=== PATIENT | female | born 1985 | race Caucasian/White ===

== ENCOUNTER 2017-08-27 19:32 | Emergency (ER) | payer OTHER ==
[~2017-08-27] VITALS: Ht 378.5 cm; Wt 88.7 kg
[~2017-08-27 19:32] MED LIST: CLON2TAB3 PO; IBUP-1450 PO; SERT1TAB68 PO
[2017-08-27 19:42] VITALS: TEMP 37; Ht 378.5 cm; Wt 88.7 kg
--- NOTE | 2017-08-27 20:40 | EMERGENCY ROOM VISIT NOTE ---
History Report prepared by Raul: Kim Mayes Under the Supervision of: Dr. Zaynab Fajarod M.D. First contact with patient: 20:29 Chief Complaint: ILLNESS Stated Complaint: NAUSEOUS AT TIMES, HEADACHES, FATIGUE AND DIZZY History of Present Illness The patient is a 31 year old female who presents to the Emergency Room with complaints of a constant illness beginning a few days ago. The patient states that she has been feeling tired, dizzy, and nauseous over the last few days. She reports that her last menstrual period was 1 month ago and she took plan B but 2 days after intercourse and only bled a small amount. She notes that she has had chills and cramping. She denies any bleeding. The patient states that she took a positive test yesterday and today that were light. She notes that she did have bad morning sickness with her first . She did have a for that delivery. Source of History: patient Onset: 2 days ago Position: other (global) Quality: other (illness) Timing: constant Associated Symptoms: + chills, + nausea, + fatigue Note: The patient complains of cramping. She denies bleeding. Review of Systems See HPI for pertinent positives & negatives. A total of 10 systems reviewed and were otherwise negative. Past Medical & Surgical Medical Problems: (1) section Family History FH: cancer FHx: gallbladder disease Hypertension Social History Smoking Status: Never Smoker Alcohol Use: none Marital Status: single Occupation Status: unemployed Current/Historical Medications Scheduled Etonogestrel/Ethinyl Estradiol (Nuvaring), 1 EA VAGRING MONTHLY Metformin Hcl (Glucophage), 500 MG PO TIDM Sertraline Hcl (Zoloft), 100 MG PO DAILY Scheduled PRN Clonazepam (Klonopin), 2 MG PO TID PRN for Anxiety Ibuprofen (Motrin), 600 MG PO Q6H PRN for Pain Allergies Coded Allergies: Sulfa Drugs (Unverified Allergy, Severe, VOMITING, 07/11/16) Physical Exam Vital Signs Date Time Temp Pulse Resp B/P (MAP) Pulse Ox O2 Delivery O2 Flow Rate FiO2 08/27/17 22:33 77 16 120/74 99 08/27/17 21:49 91 16 114/74 99 08/27/17 19:42 37.0 95 18 151/104 97 Room Air Physical Exam Vital signs reviewed. General: Well-appearing 31-year-old female, in no significant distress. HEENT: No scleral icterus, PERRLA, neck supple. Atraumatic. Cardiovascular: Regular rate and rhythm, no extra sounds. Pulmonary: Clear to auscultation bilaterally, normal work of breathing. Abdomen: Soft, nontender, nondistended, positive bowel sounds. Musculoskeletal: Atraumatic, no peripheral edema. Neurologic: Patient awake alert and oriented x 3, full strength in all 4 extremities. Cranial nerves 2 through 12 grossly intact. Skin: Warm, dry, no rash Medical Decision & Procedures Laboratory Results 08/27/17 21:07 Red Blood Count 4.38, Mean Corpuscular Volume 88.4, Mean Corpuscular Hemoglobin 30.4, Mean Corpuscular Hemoglobin Concent 34.4, Mean Platelet Volume 11.5, Neutrophils (%) (Auto) 58.9, Lymphocytes (%) (Auto) 34.1, Monocytes (%) (Auto) 4.5, Eosinophils (%) (Auto) 1.9, Basophils (%) (Auto) 0.2, Neutrophils # (Auto) 9.95, Lymphocytes # (Auto) 5.78, Monocytes # (Auto) 0.77, Eosinophils # (Auto) 0.33, Basophils # (Auto) 0.03 08/27/17 21:07 Test 08/27/17 20:40 08/27/17 21:07 Urine Color YELLOW Urine Appearance CLEAR (CLEAR) Urine pH 7.0 (4.5-7.5) Urine Specific [place] 1.007 (1.000-1.030) Urine Protein NEG (NEG) Urine Glucose (UA) NEG (NEG) Urine Ketones NEG (NEG) Urine Occult Blood NEG (NEG) Urine Nitrite NEG (NEG) Urine Bilirubin NEG (NEG) Urine Urobilinogen NEG (NEG) Urine Leukocyte Esterase NEG (NEG) Urine Test NEG (NEG) White Blood Count 16.93 K/uL (4.8-10.8) Red Blood Count 4.38 M/uL (4.2-5.4) Hemoglobin 13.3 g/dL (12.0-16.0) Hematocrit 38.7 % (37-47) Mean Corpuscular Volume 88.4 fL (80-100) Mean Corpuscular Hemoglobin 30.4 pg (25-34) Mean Corpuscular Hemoglobin Concent 34.4 g/dl (32-36) Platelet Count 263 K/uL (130-400) Mean Platelet Volume 11.5 fL (7.4-10.4) Neutrophils (%) (Auto) 58.9 % Lymphocytes (%) (Auto) 34.1 % Monocytes (%) (Auto) 4.5 % Eosinophils (%) (Auto) 1.9 % Basophils (%) (Auto) 0.2 % Neutrophils # (Auto) 9.95 K/uL (1.4-6.5) Lymphocytes # (Auto) 5.78 K/uL (1.2-3.4) Monocytes # (Auto) 0.77 K/uL (0.11-0.59) Eosinophils # (Auto) 0.33 K/uL (0-0.5) Basophils # (Auto) 0.03 K/uL (0-0.2) RDW Standard Deviation 42.6 fL (36.4-46.3) RDW Coefficient of Variation 13.2 % (11.5-14.5) Immature Granulocyte % (Auto) 0.4 % Immature Granulocyte # (Auto) 0.07 K/uL (0.00-0.02) Red Blood Cell Morphology Unremarkable Anion Gap 8.0 mmol/L (3-11) Est Creatinine Clear Calc Drug Dose 166.0 ml/min Estimated GFR () 135.7 Estimated GFR (Non- 117.1 BUN/Creatinine Ratio 5.7 (10-20) Calcium Level 9.1 mg/dl (8.5-10.1) Total Bilirubin 0.2 mg/dl (0.2-1) Direct Bilirubin < 0.1 mg/dl (0-0.2) Aspartate Amino Transf (AST/SGOT) 9 U/L (15-37) Alanine Aminotransferase (ALT/SGPT) 18 U/L (12-78) Alkaline Phosphatase 73 U/L (45-117) Total Protein 7.2 gm/dl (6.4-8.2) Albumin 3.5 gm/dl (3.4-5.0) Thyroid Stimulating Hormone (TSH) 1.230 uIu/ml (0.300-4.500) Human Chorionic Gonadotropin, Qual NEG (NEG) Laboratory results per my review. ED Course 2028: Past medical records reviewed. The patient was evaluated in room B3. A complete history and physical examination was performed. 2051: I reevaluated the patient and updated her on her results. 2221: Upon reevaluation, the patient appeared to have improvement of her symptoms. I discussed findings with the patient. She verbalized agreement of the treatment plan. The patient was discharged home. Medical Decision Differential diagnosis includes , viral illness, metabolic abnormality , UTI, and anxiety. This patient was evaluated and appeared to be in no significant distress. Physical examination is fairly unrevealing. Urine test is negative. Laboratory work was drawn due to the patient's symptoms. Serum test is also negative. Patient has a mild leukocytosis, which is consistent with previous numbers. I do not believe this represents an acute infection. Patient is likely suffering from gastritis or a viral illness. She has some anxiety about taking Plan B earlier in the month. She was reassured and asked to use Pepcid as needed. She will follow-up with her physician for reevaluation and return to the ER for worsening of symptoms or any medical concerns. Medication Reconcilliation Current Medication List: was personally reviewed by me Blood Pressure Screening Patient's blood pressure: Elevated blood pressure Blood pressure disposition: Elevated BP felt to be situational Impression Primary Impression: Nausea Additional Impression: test negative Scribe Attestation The scribe's documentation has been prepared under my direction and personally reviewed by me in its entirety. I confirm that the note above accurately reflects all work, treatment, procedures, and medical decision making performed by me. Departure Information Dispostion Home / Self-Care Referrals Charanjit Ortiz M.D. (PCP) Forms HOME CARE DOCUMENTATION FORM, IMPORTANT VISIT INFORMATION, WORK / SCHOOL INSTRUCTIONS Patient Instructions My [facility] Additional Instructions Diagnosis: Nausea, test request Pepcid 20 mg twice daily as needed for gastritis. Please stop smoking. Avoid soda, coffee, alcohol, greasy or's seafoods. Avoid ibuprofen, aspirin and Aleve. Follow-up with your physician this week for continued symptoms. Return to the ER for worsening of symptoms or any medical concerns. Problem Qualifiers
[2017-08-27] MEDS ORDERED: GLC/500 PO (21:00)
[2017-08-27] MEDS ORDERED: ETONMIS VAGRING (21:01)
[2017-08-27 21:27] LABS: HEMATOCRIT 38.7 % (37-47); MEAN CELL VOLUME 88.4 fL (80-100); MEAN CORPUSCULAR HEMOGLOBIN 30.4 pg (25-34); MEAN CORPUSCULAR HGB CONC 34.4 g/dl (32-36); MEAN PLATELET VOLUME 11.5 fL (7.4-10.4); PLATELET COUNT 263 K/uL (130-400); RED BLOOD COUNT 4.38 M/uL (4.2-5.4); WHITE BLOOD COUNT 16.93 K/uL (4.8-10.8)
[2017-08-27 21:42] LABS: URINE APPEARANCE CLEAR (CLEAR); URINE BILIRUBIN NEG (NEG); URINE COLOR YELLOW; URINE NITRITE NEG (NEG); URINE SPECIFIC GRAVITY 1.007 (1.000-1.030); UROBILINOGEN NEG (NEG); ZZUR CULT IF INDIC CLEAN CATCH NO
[2017-08-27 21:43] LABS: MANUAL MICROSCOPIC REQUIRED? NO; REVIEW REQ? NO
[2017-08-27 21:44] LABS: ALT/SGPT 18 U/L (12-78); BLOOD UREA NITROGEN 4 mg/dl (7-18); BUN/CREATININE RATIO 5.7 (10-20); CALCIUM 9.1 mg/dl (8.5-10.1); CARBON DIOXIDE 25 mmol/L (21-32); CHLORIDE 109 mmol/L (98-107); GLUCOSE 101 mg/dl (70-99); POTASSIUM 3.6 mmol/L (3.5-5.1); SODIUM 142 mmol/L (136-145)
[2017-08-27 21:45] LABS: PREG INTERNAL NEGATIVE QC NEG CLEAR BACKGROUND; PREG INTERNAL POSITIVE QC POS CONTROL LINE
[2017-08-27 21:55] LABS: ALKALINE PHOSPHATASE 73 U/L (45-117); AST/SGOT 9 U/L (15-37)
[2017-08-27 22:25] LABS: BASO % 0.2 %; BASO ABS # 0.03 K/uL (0-0.2); COMPLETE YES; EOS % 1.9 %; IG% 0.4 %; LYMPH % 34.1 %; LYMPH ABS # 5.78 K/uL (1.2-3.4); MONO % 4.5 %; NEUT % 58.9 %
[2017-08-27 22:33] VITALS: BP 120/74; PULSE 77; O2SAT 99
== END 2017-08-27 22:34 | disposition home or self-care (01) ==
LOC: C.EDB 19:33
DX: R11.0 Nausea (principal); Z80.9 Family history of malignant neoplasm, unspecified; Z83.79 Family history of other diseases of the digestive system; Z82.49 Family history of ischemic heart disease and other diseases of the circulatory system; Z79.899 Other long term (current) drug therapy

== ENCOUNTER 2017-11-21 05:56 | Emergency (ER) | payer OTHER ==
[~2017-11-21] VITALS: Ht 175.3 cm; Wt 85.2 kg
[~2017-11-21 05:56] MED LIST changes: +ETONMIS VAGRING; +GLC/500 PO
[2017-11-21 06:02] VITALS: Ht 175.3 cm; Wt 85.2 kg
[2017-11-21] MEDS ORDERED: CALC600T PO (06:29)
[2017-11-21] MEDS ORDERED: MULT-506 PO (06:29)
[2017-11-21] MEDS ORDERED: SODIUM CHLORIDE 0.9% 1000ML 1,000 ML IV ONE (06:30)
[2017-11-21 06:35] LABS: HEMATOCRIT 43.1 % (37-47); HEMOGLOBIN 14.4 g/dL (12.0-16.0); MEAN CELL VOLUME 90.4 fL (80-100); MEAN CORPUSCULAR HEMOGLOBIN 30.2 pg (25-34); MEAN CORPUSCULAR HGB CONC 33.4 g/dl (32-36); MEAN PLATELET VOLUME 11.6 fL (7.4-10.4); PLATELET COUNT 289 K/uL (130-400); RED CELL DISTRIBUTION WIDTH CV 12.8 % (11.5-14.5); RED CELL DISTRIBUTION WIDTH SD 42.2 fL (36.4-46.3); WHITE BLOOD COUNT 17.53 K/uL (4.8-10.8)
[2017-11-21 06:53] LABS: ALBUMIN 3.8 gm/dl (3.4-5.0); CALCIUM 9.3 mg/dl (8.5-10.1); CREATININE 0.55 mg/dl (0.60-1.20); POTASSIUM 3.9 mmol/L (3.5-5.1)
[2017-11-21 06:56] LABS: TOTAL PROTEIN 6.9 gm/dl (6.4-8.2)
[2017-11-21 07:27] LABS: BASO % 0.3 %; BASO ABS # 0.05 K/uL (0-0.2); EOS % 2.9 %; IG# 0.08 K/uL (0.00-0.02); LYMPH % 41.4 %; LYMPH ABS # 7.26 K/uL (1.2-3.4); MONO % 6.4 %; MONO ABS # 1.13 K/uL (0.11-0.59); NEUT % 48.5 %; NEUT ABS # 8.51 K/uL (1.4-6.5)
[2017-11-21 08:35] VITALS: BP 106/62; PULSE 62; TEMP 36.4; O2SAT 98
--- NOTE | 2017-11-21 09:51 | DIAGNOSTIC IMAGING REPORT ---
TRANSVAGINAL HISTORY: 32 years-old Female vag bleed. likely miscairrage. Acute vaginal bleeding with COMPARISON: Pelvic ultrasound 06/20/2013 TECHNIQUE: Multiple real-time sonographic images of the deep pelvic structures were obtained transabdominally and transvaginally assessing grayscale appearance, color and spectral flow FINDINGS: TRANSABDOMINAL: Retroflexed uterus measures 9.9 x 4.4 x 5.2 cm. Intrauterine gestational sac measures 1.3 cm correlating with estimated gestational age of 5 weeks and 3 days. The ovaries measure within normal limits and appear unremarkable. TRANSVAGINAL: Retroflexed uterus contains an intrauterine gestational sac measuring 1.4 cm correlating with estimated gestational age of 5 weeks and 4 days. Yolk sac is also present, 0.3 cm. No pole identified. There is a curvilinear 1.3 x 0.3 cm collection noted along the anterior aspect of the gestational sac. Left ovary measures 2.3 x 1.5 x 2.8 cm and is unremarkable with arterial inflow documented. Complex centrally cystic lesion within the right ovary measures 1.2 x 1.1 x 0.9 cm. Right ovary overall measures 4.0 x 3.4 x 2.1 cm. Arterial inflow to the right ovary is documented. IMPRESSION: 1. Intrauterine gestational sac and yolk sac are seen without pole identified at this time. Size of the gestational sac correlates with estimated gestational age of 5 weeks and 4 days. Follow-up with serial quantitative beta hCG analysis and ultrasound imaging is needed to confirm a viable gestation. 2. 1.3 cm subchorionic hematoma anterior to the gestational sac. Attention at follow-up recommended. 3. Left corpus luteum, 1.2 cm. No evidence of ovarian torsion. The above report was generated using voice recognition software. It may contain grammatical, syntax or spelling errors. Electronically signed by: José Antonio Anthony M.D. 11/21/2017 9:50 AM Dictated Date/Time: 11/21/2017 9:44 AM
[2017-11-21 10:18] VITALS: BP 122/86; PULSE 95; O2SAT 99
--- NOTE | 2017-11-21 17:11 | EMERGENCY ROOM VISIT NOTE ---
ED Visit Note First contact with patient: 08:44 Emergency Department Note: Ms. Vanessa's care was transferred to [place] by Catarino Reyez PA-C at the end of his shift pending quantitative beta hCG, ultrasound and possible role gram administration. In summary patient is 6, para 2. She has been diagnosed as and is currently one month and 6 days. On her last [employer] follow-up her quantitative beta hCG was not matching to her possible and her [employer] indicated that she might be having a miscarriage. She was scheduled for follow- up in 2 days. Patient started having cramping and bleeding early this morning at approximately 3:30 AM. She came to the ER and initial evaluation was done by Mr. Reyez; please see his notes for full information about his contact with the patient. On my initial evaluation patient was complaining of suprapubic abdominal pain. She rated her discomfort 7/10. She reports her pain is been constant. Her pain is nonradiating. She has not identified any aggravating or alleviating factors related to the pain. She was offered pain medication and refused. Patient's quantitative beta hCG came back at 4796. Her blood type was O-. Radiological impression of her ultrasound shows a intrauterine gestational sac and yolk sac are seen without pole. Size of the gestational sac correlates with estimated gestational age of 5 weeks and 4 days. Radiologist felt that serial quantitative beta hCGs and ultrasounds were needed to confirm the viability of the gestation. Radiologist also noted 1.3 cm subchorionic hematoma anterior to the gestational sac and left corpus luteum measuring 1.2 cm and no evidence of ovarian torsion. Clinical Impression: Probable early spontaneous . Disposition: Patient discharged home in stable condition accompanied by male friend; prior to departure she was reassessed and subjectively reported she was feeling better and rated her discomfort 2/10. Patient had no additional bleeding during her stay in the ED. Plan: Patient was encouraged to alternate ibuprofen and acetaminophen as needed for pain per Patient was encouraged to have vaginal rest. Patient was encouraged to to her [employer] appointment for follow-up care and treatment. Patient is encouraged to return to the ED for worsening/uncontrolled pain, uncontrolled bleeding or any new/concerning symptoms.
--- NOTE | 2017-11-22 02:25 | EMERGENCY ROOM VISIT NOTE ---
History First contact with patient: 06:05 Chief Complaint: ED VAG BLEEDING Stated Complaint: BLEEDING,BLOOD CLOTS,MISCARRIAGE History of Present Illness The patient is a 32 year old female who presents to the Emergency Room with complaints of vaginal bleeding that began about 2 and half hours ago. The patient is with 2 previous spontaneous abortions and 2 elective abortions. [facility]. The patient is reportedly 5-6 weeks , and started with bright red vaginal bleeding tonight. She states that she soaked through a pad in one hour, contacted the on-call nurse, and was referred to the ER for further management. The patient is having abdominal cramping but not distinct pain. She states that she took Advil at home for the discomfort which is not significantly improve her symptoms. The patient has not had fever or chills. No chest pain or shortness of breath. She has an appointment in 2 days with her [employer]. She rates her overall discomfort a 6/10. Review of Systems More than 10 systems were reviewed and otherwise negative with the exception of history of present illness. Past Medical/Surgical History Medical Problems: (1) section Family History FH: cancer FHx: gallbladder disease Hypertension Social History Smoking Status: Current Every Day Smoker Alcohol Use: none Marital Status: single Occupation Status: unemployed Current/Historical Medications Scheduled Calcium Carbonate (Calcium 600), 600 MG PO DAILY Metformin Hcl (Glucophage), 500 MG PO TIDM Multivitamin (Multivitamin), 1 TAB PO DAILY Sertraline Hcl (Zoloft), 200 MG PO DAILY Scheduled PRN Clonazepam (Klonopin), 2 MG PO TID PRN for Anxiety Physical Exam Vital Signs Date Time Temp Pulse Resp B/P (MAP) Pulse Ox O2 Delivery O2 Flow Rate FiO2 11/21/17 10:18 95 16 122/86 99 11/21/17 08:45 62 16 106/62 98 Room Air 11/21/17 08:35 36.4 62 18 106/62 98 11/21/17 07:54 71 16 91/42 100 Room Air 11/21/17 06:02 36.8 93 18 120/79 95 Room Air Physical Exam VITALS: Vitals are noted on the nurse's note and reviewed by myself. Vital signs stable. GENERAL: Well-developed, well-nourished, white female, who is in no acute distress and resting comfortably. Patient is cooperative with the examination. NECK: Supple without nuchal rigidity. No lymphadenopathy. No thyromegaly. Cervical spine is nontender. HEART: Regular rate and rhythm without murmurs gallops or rubs. LUNGS: Clear to auscultation bilaterally without wheezes, rales or rhonchi. No retractions or accessory muscle use. ABDOMEN: Positive normal bowel sounds x 4. Soft with mild tenderness throughout. No focal tenderness. No CVA tenderness. MUSCULOSKELETAL: No muscle atrophy, erythema, or edema noted. Full range of motion without joint tenderness in all extremities. Medical Decision & Procedures Laboratory Results 11/21/17 06:17 Red Blood Count 4.77, Mean Corpuscular Volume 90.4, Mean Corpuscular Hemoglobin 30.2, Mean Corpuscular Hemoglobin Concent 33.4, Mean Platelet Volume 11.6, Neutrophils (%) (Auto) 48.5, Lymphocytes (%) (Auto) 41.4, Monocytes (%) (Auto) 6.4, Eosinophils (%) (Auto) 2.9, Basophils (%) (Auto) 0.3, Neutrophils # (Auto) 8.51, Lymphocytes # (Auto) 7.26, Monocytes # (Auto) 1.13, Eosinophils # (Auto) 0.50, Basophils # (Auto) 0.05 11/21/17 06:17 Test 11/21/17 06:17 White Blood Count 17.53 K/uL (4.8-10.8) Red Blood Count 4.77 M/uL (4.2-5.4) Hemoglobin 14.4 g/dL (12.0-16.0) Hematocrit 43.1 % (37-47) Mean Corpuscular Volume 90.4 fL (80-100) Mean Corpuscular Hemoglobin 30.2 pg (25-34) Mean Corpuscular Hemoglobin Concent 33.4 g/dl (32-36) Platelet Count 289 K/uL (130-400) Mean Platelet Volume 11.6 fL (7.4-10.4) Neutrophils (%) (Auto) 48.5 % Lymphocytes (%) (Auto) 41.4 % Monocytes (%) (Auto) 6.4 % Eosinophils (%) (Auto) 2.9 % Basophils (%) (Auto) 0.3 % Neutrophils # (Auto) 8.51 K/uL (1.4-6.5) Lymphocytes # (Auto) 7.26 K/uL (1.2-3.4) Monocytes # (Auto) 1.13 K/uL (0.11-0.59) Eosinophils # (Auto) 0.50 K/uL (0-0.5) Basophils # (Auto) 0.05 K/uL (0-0.2) RDW Standard Deviation 42.2 fL (36.4-46.3) RDW Coefficient of Variation 12.8 % (11.5-14.5) Immature Granulocyte % (Auto) 0.5 % Immature Granulocyte # (Auto) 0.08 K/uL (0.00-0.02) Hypersegmented Polys 1+ Anion Gap 9.0 mmol/L (3-11) Est Creatinine Clear Calc Drug Dose 174.3 ml/min Estimated GFR () 145.9 Estimated GFR (Non- 125.9 BUN/Creatinine Ratio 9.4 (10-20) Calcium Level 9.3 mg/dl (8.5-10.1) Total Bilirubin 0.2 mg/dl (0.2-1) Aspartate Amino Transf (AST/SGOT) 14 U/L (15-37) Alanine Aminotransferase (ALT/SGPT) 19 U/L (12-78) Alkaline Phosphatase 76 U/L (45-117) Total Protein 6.9 gm/dl (6.4-8.2) Albumin 3.8 gm/dl (3.4-5.0) Globulin 3.1 gm/dl (2.5-4.0) Albumin/Globulin Ratio 1.2 (0.9-2) Human Chorionic Gonadotropin, Quant 4796 mIU/mL Chemistry Specimen Hemolysis Medications Administered Medications (Trade) Dose Ordered Sig/Norberto Route Start Time Stop Time Status Last Admin Dose Admin Sodium Chloride 1,000 ml @ 999 mls/hr Q1H1M ONCE IV 11/21/17 06:30 11/21/17 07:30 DC 11/21/17 06:28 999 MLS/HR ED Course Physical exam and history were performed. Nursing notes, EMR, and Medication List were personally reviewed. Patient appears to have bright red vaginal bleeding that began a few hours ago. The patient admits the bleeding has slowed, but she did pass several large clots and is concerned that she may be having a spontaneous . IV access was established and labs were obtained. Blood bank was ordered. The patient was hydrated with normal saline. Ultrasound was ordered. Pelvic exam was discussed but deferred per the patient. The patient remained in stable condition until the time of shift change. The case was discussed with my colleague, Fausto Valdovinos PA-C, who will assume care at this time. At this time the remainder of the patient's blood work as well as her ultrasound is pending. The patient may need Rhogam. Please see Mr. Valdovinos's dictation for further Emergency Department course, plan, and disposition. The chart was completed utilizing [employer] Speech Voice Recognition Software. Grammatical errors, random word insertions, pronoun errors, and incomplete sentences are an occasional consequence of this system due to software limitations, ambient noise, and hardware issues. Any formal questions or concerns about the content, text, or information contained within the body of this dictation should be directly addressed to the provider for clarification. . Medical Decision Differential diagnosis: Etiologies such as ectopic , dysfunction uterine bleeding, bleeding dyscrasia, trauma, infection, as well as others were entertained. Impression Primary Impression: Spontaneous Departure Information Dispostion Home / Self-Care Condition GOOD Forms WORK / SCHOOL INSTRUCTIONS, HOME CARE DOCUMENTATION FORM, IMPORTANT VISIT INFORMATION Patient Instructions My [facility] Additional Instructions You may alternate 600 mg of ibuprofen and 650 mg of acetaminophen every 3 hours as needed for persistent pain. Keep your upcoming appointment with oncology for recheck in 2 days. Return to the ED for worsening/uncontrolled pain, worsening vaginal bleeding or any new/concerning symptoms.
== END 2017-11-21 10:19 | disposition home or self-care (01) ==
LOC: C.EDB 05:57
DX: O03.9 Complete or unspecified spontaneous abortion without complication (principal); F17.200 Nicotine dependence, unspecified, uncomplicated; Z87.59 Personal history of other complications of pregnancy, childbirth and the puerperium; Z98.891 History of uterine scar from previous surgery; Z82.49 Family history of ischemic heart disease and other diseases of the circulatory system

== ENCOUNTER 2018-11-12 05:47 | Inpatient (IN) ==
--- NOTE | 2018-10-14 12:15 | PAT Medication Instructions ---
Medication Instructions Date of Service October 14, 2018 Home Medications PNV cmb#95-ferrous fumarate-FA [] 1 tab PO DAILY clonazepam [Klonopin] 1 mg PO TID NEEDED sertraline [Zoloft] 200 mg PO HS DO NOT take the morning of surgery PNV cmb#95-ferrous fumarate-FA [] 1 tab PO DAILY Take morning of surgery With a small sip of water, OTHERWISE NOTHING TO EAT OR DRINK AFTER MIDNIGHT: clonazepam [Klonopin] 1 mg PO TID NEEDED (stop 4 hours before surgery) Take evening before surgery clonazepam [Klonopin] 1 mg PO TID NEEDED sertraline [Zoloft] 200 mg PO HS Other Notes If you have any questions please call us at [phone] or [phone] or [phone] or [phone]
--- NOTE | 2018-10-14 13:26 | Anesthesiology Consultation ---
Date of Service October 14, 2018 Assessment & Plan (1) Encounter for pre-operative examination: Chart Review Chart Review: Acceptable Risk for Surgery and Patient seen in Pre Admission Testing Consults Requested none Teaching & Discussion Pre-Anesthesia Teaching/Discussion Notes: Instructed NPO after midnight before surgery, except medications with 15 cc of water. Medication instructions provided according to the PAT guidelines. History Surgery Operation Date: 11/12/18 07:30 Proposed Procedures p Section in LD - Chelsea Velazco MD Height/Weight Height: 5 ft 9 in Weight: 93.8 kg Allergies Allergy/AdvReac Type Severity Reaction Status Date / Time Sulfa (Sulfonamide Allergy Severe VOMITING Verified 10/09/18 15:30 Antibiotics) Medications Home Medications Medication Instructions Recorded Confirmed Last Taken PNV cmb#95-ferrous fumarate-FA 1 tab PO DAILY 10/09/18 10/09/18 Unknown [] clonazepam [Klonopin] 1 mg PO TID PRN 10/09/18 10/09/18 Unknown sertraline [Zoloft] 200 mg PO HS 10/09/18 10/09/18 Unknown Past Medical History Medical History Anemia Anxiety Depression GERD (gastroesophageal reflux disease) Hypothyroidism IN PAST Migraine Post traumatic stress disorder Prediabetes Temporomandibular joint disorder Past Family History Family History Mother Hypertension Grandfather Stroke Father Heart attack Past Surgical History Surgical History History of anesthesia reaction INCREASED ANXIETY History of section (~12/12/12) History of dilatation and curettage (~12/06/11) History of nasal septoplasty (~03/23/10) History of tooth extraction Past Anesthesia History No Hx of Anesthesia Complications and No Family Hx of Anesthesia Complications History of PONV Yes Motion Sickness Screening History of Motion Sickness: Yes Social History Smoking Status: Current every day smoker tobacco type: cigarettes Smoking cigarettes per day: 2 packs Do You Dip or Chew Tobacco: No Hx Alcohol Use: No Hx Substance Use: No substance use type: does not use Exercise / Class Metabolic Activity II 4-5 Yardwork/Stairs/Walk up hill (Able to climb FOS. Denies CP. Does have SOB with . ) Review of Systems Patient denies chest pain, joint pain, cough, wheezing, palpitations. +joint pain (hips, back, feet, pelvis) +SOB/PAKRER (with only) +acid reflux + palpitations (with anxiety) Physical Exam Vital Signs BP: 106/72 P: 89 R: 20 T: 97.7 SPO2: 98% on RA ENMT Thyromental Distance: < 3.5 Finger Breadths Mallampati Class: II Neck normal visual inspection, trachea midline and + shortened thyromental distance; neck extension not limited Respiratory normal respiratory effort Auscultation: lungs clear to auscultation bilaterally Cardiovascular Rate/Rhythm: regular rate and regular rhythm Heart Sounds: no murmur Vessels: no carotid bruit Neurologic moves all extremities Psychiatric Orientation: alert and oriented x 3 Testing Laboratory Results 10/14/18 13:45 Blood Type O Negative 10/14/18 13:45 Antibody Screen POSITIVE A 10/14/18 13:45 Dr. Jorgensen's office was notified of leukocytosis, as well as the presence of antibodies in the type & screen.
[2018-10-14 15:46] LABS: Basophils # (auto) 0.03 K/uL (0-0.2); Basophils % (auto) 0.2 %; Eosinophils # (auto) 0.19 K/uL (0-0.5); Eosinophils % (auto) 1.2 %; Hematocrit (blood only) 36.6 % (37-47); Hemoglobin 12.1 g/dL (12.0-16.0); Immature Granulocytes # (auto) 0.12 K/uL (0.00-0.02); Immature Granulocytes % (auto) 0.8 %; Lymphocytes # (auto) 4.38 K/uL (1.2-3.4); Lymphocytes % (auto) 28.4 %; Mean Corpuscular Hgb Conc 33.1 g/dL (32-36); Mean Corpuscular Volume 88.8 fL (80-100); Monocytes # (auto) 1.04 K/uL (0.11-0.59); Monocytes % (auto) 6.7 %; Neutrophils # (auto) 9.68 K/uL (1.4-6.5); Neutrophils % (auto) 62.7 %; Platelet Count 227 K/uL (130-400); RDW Coefficient of Variation 13.4 % (11.5-14.5); RDW Standard Deviation 43.6 fL (36.4-46.3); Red Blood Count 4.12 M/uL (4.2-5.4); White Blood Count 15.44 K/uL (4.8-10.8)
[2018-11-12] MEDS ORDERED: LACTATED RINGER'S 1,000 ML IV SCH ×3 (06:00→09:15)
[2018-11-12] MEDS ORDERED: CITRIC ACID/SODIUM CITRATE 15 ML UDC PO SCH (06:00)
[2018-11-12] MEDS ORDERED: CEFAZOLIN 2,000 MG in SYRINGE 0 ML IV SCH (06:00)
[2018-11-12 06:36] LABS: Hematocrit (blood only) 35.4 % (37-47); Hemoglobin 11.9 g/dL (12.0-16.0); Mean Corpuscular Hgb Conc 33.6 g/dL (32-36); Mean Platelet Volume 12.3 fL (7.4-10.4); Platelet Count 180 K/uL (130-400); RDW Coefficient of Variation 13.4 % (11.5-14.5); RDW Standard Deviation 42.8 fL (36.4-46.3); Red Blood Count 4.07 M/uL (4.2-5.4); White Blood Count 15.99 K/uL (4.8-10.8)
[2018-11-12 07:10] LABS: Basophils # (auto) 0.02 K/uL (0-0.2); Basophils % (auto) 0.1 %; Eosinophils # (auto) 0.01 K/uL (0-0.5); Eosinophils % (auto) 0.1 %; Immature Granulocytes # (auto) 0.26 K/uL (0.00-0.02); Immature Granulocytes % (auto) 1.6 %; Lymphocytes # (auto) 3.25 K/uL (1.2-3.4); Lymphocytes % (auto) 20.3 %; Monocytes # (auto) 0.93 K/uL (0.11-0.59); Monocytes % (auto) 5.8 %; Neutrophils # (auto) 11.52 K/uL (1.4-6.5); Neutrophils % (auto) 72.1 %
--- NOTE | 2018-11-12 07:41 | History & Physical Bridge Note ---
Date of Service November 12, 2018 History & Physical Bridge Note I have examined the patient, reviewed the History & Physical and in the interval since the performance of the History & Physical I have noted the following changes of clinical significance She had URI and has been on Keflex and Prednisone taper since 11/08/18 Pulse Ox: 98% in RA FHR 150's, with minimal to moderate variability, no decels She smoked 6 cigarettes this morning before she came She has been anxious, on Zoloft, Clonipin. All questions were answered.
[2018-11-12] MEDS ORDERED: fentaNYL citrate 100 MCG/2 ML VIAL ONE (07:42)
[2018-11-12] MEDS ORDERED: MoRPHine SULFATE PF 1 MG/ML 10 ML AMP/VIAL ONE (07:42)
[2018-11-12] MEDS ORDERED: ONDANSETRON INJ 2 MG/ML 2 ML VIAL ONE ×2 (07:43→08:44)
[2018-11-12] MEDS ORDERED: OXYTOCIN 10 UNITS/ML VIAL ONE (07:43)
[2018-11-12] MEDS ORDERED: MIDAZOLAM HCL 1 MG/ML 2ML VIAL ONE ×2 (08:25→08:42)
[2018-11-12] MEDS ORDERED: KETOROLAC 30 MG/ML VIAL ONE (08:33)
[2018-11-12] MEDS ORDERED: PROMETHAZINE HCL INJ 25 MG/ML 1 ML VIAL ONE (08:33)
[2018-11-12] MEDS ORDERED: PHENYLEPHRINE 100MCG/ML 5ML SYR ONE (08:38)
--- NOTE | 2018-11-12 09:03 | Post Operative Brief Note ---
Immediate Post Op Note v1 Date of Surgery November 12, 2018 Pre & Post Diagnosis Operation Date: 11/12/18 07:30 Pre-Op Diagnosis: Previous Section; Pt desires Repeat Section. Post-Op Diagnosis: Same as Pre-op Procedure Operation Date: 11/12/18 07:30 Actual Procedures Repeat Section in LD; Live Male Infant at 0822 - Chelsea Velazco MD Surgeon Chelsea Velazco MD Apartment Groundskeeper Dr. Vaughn Estimated Blood Loss 700 Findings Consistent with Post-Op Diagnosis Fluids 1200 ML LR Drains Palacios Catheter Complications none Disposition Accompanied Patient To Recovery: Yes Disposition: L&D Overlapping Procedure I was present for: the critical portions of procedure. (entire case)
[2018-11-12] MEDS ORDERED: PROMETHAZINE HCL 25 MG in SODIUM CHLORIDE 0.9% 50 ML IV PRN ×2 (09:14→09:20)
[2018-11-12] MEDS ORDERED: KETOROLAC 30 MG/ML VIAL IV PRN (09:14)
[2018-11-12] MEDS ORDERED: DIPHTHERIA/TETANUS/PERTUSSIS 0.5 ML SYR/VIAL IM ONE (09:14)
[2018-11-12] MEDS ORDERED: BENZOCAINE 20% AER SPR 82.5 GM CAN EXT PRN (09:14)
[2018-11-12] MEDS ORDERED: ONDANSETRON INJ 2 MG/ML 2 ML VIAL IV PRN ×3 (09:14→09:59)
[2018-11-12] MEDS ORDERED: OXYCODONE/ACETAMINOPHEN 5mg/325mg TAB PO PRN (09:14)
[2018-11-12] MEDS ORDERED: SUPERCREAM 0.870% 15 GM JAR EXT PRN (09:14)
[2018-11-12] MEDS ORDERED: SENNA 8.6 MG TAB PO PRN (09:14)
[2018-11-12] MEDS ORDERED: DiphenhydrAMINE HCL 50 MG/ML VIAL IV PRN ×2 (09:14→09:20)
[2018-11-12] MEDS ORDERED: MAGNESIUM HYDROXIDE SUSP 30 ML UDC PO PRN (09:14)
[2018-11-12] MEDS ORDERED: HYDROCORTISONE ACETATE 25 MG SUPP PR PRN (09:14)
[2018-11-12] MEDS ORDERED: MEPERIDINE HCL 50 MG/ML CARP IV PRN (09:14)
[2018-11-12] MEDS ORDERED: ALBUTEROL HFA 8 GM INHALER INH PRN (09:18)
[2018-11-12] MEDS ORDERED: NALOXONE HCL 1 MG in SODIUM CHLORIDE 0.9% 1000ML 1,000 ML IV PRN (09:20)
[2018-11-12] MEDS ORDERED: NALOXONE HCL 0.08 MG in SYRINGE 1.8 ML IV PRN (09:20)
[2018-11-12] MEDS ORDERED: ePHEDrine sulfate 50 MG/ML AMP IV PRN (09:20)
[2018-11-12] MEDS ORDERED: HYDROmorphone INJ 0.5 MG/0.5 ML SYR IV PRN (09:20)
[2018-11-12] MEDS ORDERED: NALOXONE HCL 0.4 MG/1 ML VIAL/CARP IV PRN (09:20)
[2018-11-12] MEDS ORDERED: LACTATED RINGER'S 500 ML IV PRN (09:20)
[2018-11-12] MEDS ORDERED: NALBUPHINE HCL INJ 10 MG/ML AMP IV PRN (09:20)
[2018-11-12] MEDS ORDERED: MoRPHine SULFATE PF 1 MG/ML 10 ML AMP/VIAL INT SPINAL ONE (09:20)
[2018-11-12] MEDS ORDERED: ACETAMINOPHEN 1000 MG/100 ML IV IV PRN (09:26)
[2018-11-12] MEDS ORDERED: NO NARCOTICS OR SEDATIVES SCH (09:30)
[2018-11-12] MEDS ORDERED: SODIUM CHLORIDE 0.9% 1000ML 1,000 ML IV SCH (09:30)
[2018-11-12] MEDS ORDERED: DC INTRASPINAL MORPHINE SCH (09:30)
--- NOTE | 2018-11-12 09:33 | Anesthesiology Progress Note ---
Date of Service November 12, 2018 Anesthesia Post Procedure Vital Signs Vital Signs: Temp Pulse Resp BP Pulse Ox 11/12/18 09:32 68 97 11/12/18 09:29 67 131/76 11/12/18 09:27 70 93 11/12/18 09:23 69 93 11/12/18 09:22 67 93 11/12/18 09:17 68 100 11/12/18 09:16 66 93 11/12/18 09:12 36.3 C L 69 18 132/87 100 11/12/18 09:10 36.4 C L 18 11/12/18 07:28 36.8 C 18 11/12/18 07:22 36.8 C 69 18 134/82 11/12/18 06:30 36.4 C L 16 11/12/18 06:12 71 133/77 Notes Mental Status: alert / awake / arousable and participated in evaluation Nausea / Vomiting: adequately controlled Pain: adequately controlled Airway Patency, RR, SpO2: stable & adequate BP & HR: stable & adequate Hydration State: stable & adequate Neuraxial Anesthesia: was administered and sensory block is resolving Anesthetic Complications: no major complications apparent
[2018-11-12] MEDS ORDERED: SCOPOLAMINE 1.5 MG TDSY TD ONE (11:00)
[2018-11-12] MEDS: OXYTOCIN 20 UNITS in LACTATED RINGER'S 1,000 ML IV SCH ×2 (11:34→20:27)
[2018-11-12] MEDS: SIMETHICONE 80 MG CHEW PO SCH ×3 (14:30→21:00)
[2018-11-12] MEDS: cephALEXin 500 MG CAP PO SCH ×2 (14:30→21:00)
[2018-11-12] MEDS: clonazePAM 0.5 MG TAB PO SCH (14:30)
[2018-11-12] MEDS: predniSONE 20 MG TAB PO SCH ×2 (14:42→21:00)
[2018-11-12] MEDS ORDERED: CHECK SCOPOLAMINE PATCH PLACEMENT SCH (16:00)
[2018-11-12] MEDS: DOCUSATE SODIUM 100 MG CAP PO SCH (21:00)
--- NOTE | 2018-11-12 21:20 | Operative Report ---
DATE OF OPERATION: 11/12/2018 PREOPERATIVE DIAGNOSES: The patient is a 33-year-old G2, P1-0-0-1 at 39.4 weeks of gestation who is scheduled for repeat , history of prior section, declines TOLAC/ ( trial of labor after /vaginal after section). POSTOPERATIVE DIAGNOSES: The patient is a 33-year-old G2, P1-0-0-1 at 39.4 weeks of gestation who is scheduled for repeat , history of prior section, declines TOLAC/ ( trial of labor after /vaginal after section). PROCEDURE: Repeat low transverse with Pfannenstiel skin incision. SURGEON: Chelsea Velazco MD. AUDIO VIDEO TECH: Dr. Vaughn. EBL 700 mL. FLUIDS: 1200 mL of lactated Ringer's. DRAINS: Palacios catheter drained 200 mL of clear urine. COMPLICATIONS: None. ANESTHESIA: Spinal, Dr. Donovan. FINDINGS: Baby was in cephalic presentation delivered at 08:22 a.m. Apgars were 2/6/8 at first, fifth and tenth minutes respectively. A viable male infant. MATERNAL FINDINGS: Normal uterus, fallopian tubes and ovaries. PROCEDURE: The patient was taken to the Operating Room where spinal anesthesia was given without difficulty. She was placed in dorsal supine position with a leftward tilt. She was prepared and draped in the usual sterile fashion. A Pfannenstiel skin incision was made from the old incision scar and carried through to the underlying layer of fascia with the Bovie, fascia was incised in the midline and incision was extended laterally with the help of Ferro scissors. The lower aspect of the fascial incision was grasped with 2 Anthony clamps, elevated, underlying rectus muscles were dissected off bluntly and sharply with Ferro scissors, and then upper aspect of the facial incision was grasped with 2 Anthony clamps, elevated, underlying rectus muscles were dissected sharply with Ferro scissors and bluntly. The rectus muscles were in the midline and the peritoneum was entered with fingers. The peritoneal incision was extended superiorly and inferiorly with good visualization of the bladder. Bladder blade was inserted. The vesicouterine peritoneum was identified, grasped with pickups and entered sharply with Metzenbaum scissors. Bladder flap was created digitally. Bladder blade was reinserted. Lower segment of the uterus was visualized to be very thin and it was incised with scalpel and meconium stained fluid was obtained. The incision was extended laterally with the help of fingers. Baby's head was at the incision. It was delivered without difficulty. Mouth and nose were suctioned. Cord was clamped x2 and cut. Baby was handed off to the waiting wound nurse and nursing team. The cord blood was obtained. Placenta was delivered manually intact and complete. Uterus was exteriorized, cleared of all clots and debris. Fundus was firm. The uterine incision was repaired with a 0 Vicryl in a running locked fashion and a second imbricating layer was placed with 0 Vicryl in a running fashion. Excellent hemostasis was achieved. There was a ooze to the left corner which was controlled with a [id number] stitch x2. The posterior cul-de-sac was irrigated warm normal saline, ovaries and fallopian tubes were visualized to be normal, The uterus was returned to the abdomen, the pelvis was irrigated with warm normal saline, suctioned 3 times. Incision was checked to be hemostatic. All the clots and debris were removed from the patient's abdomen and the gutters. Incision was checked and again be hemostatic. The parietal peritoneum was reapproximated with 0 Vicryl in a running fashion and the rectus muscles were reapproximated with the same suture in a running fashion. Rectus fascia was reapproximated with 0 Vicryl in a running fashion starting from both corners meeting in the midline. Subcuticular fat tissue was brought together with 3-0 Vicryl in a running fashion. Skin was closed with 4-0 Monocryl in a subcuticular fashion. The patient tolerated the procedure well. She recived 2 grams of Cefazolin before surgery. Sponge, lap, needle count was correct x3. No complications happened. I and Dr. Vaughn was present during the whole procedure. The patient was taken to recovery in stable condition. I attest to the content of the Intraoperative Record and any orders documented therein. Any exceptions are noted below. LEONA
[2018-11-13] MEDS: KETOROLAC 30 MG/ML VIAL IV PRN ×2 (00:03→05:59)
[2018-11-13] MEDS: clonazePAM 0.5 MG TAB PO SCH ×4 (00:13→17:58)
[2018-11-13 07:20] LABS: Basophils # (auto) 0.01 K/uL (0-0.2); Basophils % (auto) 0.1 %; Eosinophils # (auto) 0.01 K/uL (0-0.5); Eosinophils % (auto) 0.1 %; Hematocrit (blood only) 35.5 % (37-47); Hemoglobin 11.7 g/dL (12.0-16.0); Immature Granulocytes # (auto) 0.19 K/uL (0.00-0.02); Immature Granulocytes % (auto) 1.1 %; Lymphocytes # (auto) 2.69 K/uL (1.2-3.4); Lymphocytes % (auto) 15.2 %; Mean Corpuscular Volume 88.1 fL (80-100); Mean Platelet Volume 12.1 fL (7.4-10.4); Monocytes # (auto) 1.16 K/uL (0.11-0.59); Monocytes % (auto) 6.5 %; Neutrophils # (auto) 13.69 K/uL (1.4-6.5); Platelet Count 199 K/uL (130-400); RDW Coefficient of Variation 13.8 % (11.5-14.5); RDW Standard Deviation 44.1 fL (36.4-46.3); Red Blood Count 4.03 M/uL (4.2-5.4); White Blood Count 17.75 K/uL (4.8-10.8)
[2018-11-13] MEDS ORDERED: KETOROLAC 30 MG/ML VIAL IV PRN (08:01)
[2018-11-13] MEDS ORDERED: DiphenhydrAMINE HCL 50 MG/ML VIAL IV PRN (08:01)
[2018-11-13] MEDS ORDERED: PROMETHAZINE HCL 25 MG in SODIUM CHLORIDE 0.9% 50 ML IV PRN (08:01)
[2018-11-13] MEDS ORDERED: ONDANSETRON INJ 2 MG/ML 2 ML VIAL IV PRN (08:01)
[2018-11-13] MEDS ORDERED: ACETAMINOPHEN 1,000 MG/100 ML VIAL IV PRN (08:01)
[2018-11-13] MEDS: PRENATAL VITAMIN 1 TAB PO SCH (09:00)
[2018-11-13] MEDS: FERROUS SULFATE 325 MG TAB PO SCH (09:00)
[2018-11-13] MEDS: DOCUSATE SODIUM 100 MG CAP PO SCH ×2 (09:00→20:36)
[2018-11-13] MEDS: cephALEXin 500 MG CAP PO SCH ×3 (09:01→20:36)
[2018-11-13] MEDS: predniSONE 20 MG TAB PO SCH ×2 (09:01→20:36)
[2018-11-13] MEDS: SIMETHICONE 80 MG CHEW PO SCH ×4 (09:03→20:36)
[2018-11-13] MEDS: IBUPROFEN 600 MG TAB PO PRN ×3 (11:30→22:01)
[2018-11-13] MEDS: OXYCODONE/ACETAMINOPHEN 5mg/325mg TAB PO PRN ×3 (11:31→22:02)
[2018-11-13] MEDS ORDERED: NICOTINE 21 MG/24 HR TDSY TD SCH (11:45)
--- NOTE | 2018-11-13 12:00 | Surgery Progress Note ---
Date of Service November 13, 2018 Subjective doing well tolerating diet OOB passing gas Physical Exam 2 Vital Signs (Past 24 Hours): Last Vital Signs Temp 36.6 C 11/13/18 11:37 Pulse 69 11/13/18 11:37 Resp 18 11/13/18 11:37 BP 136/87 11/13/18 11:37 Pulse Ox 98 11/13/18 11:37 Gastrointestinal (Abdomen): normal bowel sounds, soft, nontender, no hepatosplenomegaly incision clean/dry/intact abdomen is soft and non-tender no edema neg Abbey's POD#1 will start Nicotine patch 21mg daily
[2018-11-13] MEDS ORDERED: BISACODYL 5 MG TABEC PO SCH (20:00)
[2018-11-14] MEDS: clonazePAM 0.5 MG TAB PO SCH ×2 (00:17→06:15)
[2018-11-14] MEDS: OXYCODONE/ACETAMINOPHEN 5mg/325mg TAB PO PRN ×2 (02:09→07:34)
[2018-11-14] MEDS: IBUPROFEN 600 MG TAB PO PRN ×2 (02:10→07:34)
[2018-11-14 07:52] LABS: Hematocrit (blood only) 34.3 % (37-47); Hemoglobin 11.3 g/dL (12.0-16.0)
[2018-11-14] MEDS: PRENATAL VITAMIN 1 TAB PO SCH (08:40)
[2018-11-14] MEDS: FERROUS SULFATE 325 MG TAB PO SCH (08:41)
[2018-11-14] MEDS: SIMETHICONE 80 MG CHEW PO SCH (08:41)
[2018-11-14] MEDS: cephALEXin 500 MG CAP PO SCH (08:41)
[2018-11-14] MEDS: DOCUSATE SODIUM 100 MG CAP PO SCH (08:41)
[2018-11-14] MEDS ORDERED: predniSONE 20 MG TAB PO SCH (09:00)
[2018-11-14] MEDS ORDERED: BISACODYL 10 MG SUPP PR PRN (09:14)
--- NOTE | 2018-11-14 11:12 | Obstetrical Progress Note ---
Date of Service November 14, 2018 Assessment & Plan (1) delivery delivered: s/p c/sec day #2 Pt doing well wishes to go home today d/c home with instructions Subjective Ambulation: ambulating normally Voiding: no voiding problems Passing Gas:: Yes Diet Tolerance:: clear liquids Lochia:: Small Feeding Type:: breast feeding Review of Systems All systems reviewed & are unremarkable except as noted in HPI & below Physical Exam Vital Signs (Past 24 Hours) Last Vital Signs Temp 36.5 C 11/14/18 00:00 Pulse 73 11/14/18 00:00 Resp 20 11/14/18 00:00 BP 134/78 11/14/18 00:00 Pulse Ox 97 11/14/18 00:00 Constitutional WD/WN, vitals as above well developed and well nourished Eyes PERRL, conjunctivae normal, anicteric sclerae ENMT external ear and nose normal, oropharynx normal Neck trachea midline, no thyromegaly Respiratory normal respiratory effort, lungs clear to auscultation Cardiovascular RRR, no murmur, no edema Chest (Breasts) normal inspection/palpation of breasts Gastrointestinal (Abdomen) normal bowel sounds, soft, nontender, no hepatosplenomegaly Musculoskeletal no cyanosis or clubbing, extremities motor strength 5/5 Skin no rashes, warm and dry + incision (Clean,dry and intact) Neurologic patellar DTR's 2+ bilat, sensation intact Psychiatric A+Ox3, euthymic affect Genitourinary normal external appearance Lymphatic no cervical or axillary lymphadenopathy
--- NOTE | 2018-11-15 23:59 | Discharge Summary ---
DETAILS OF ADMISSION: The patient is a 33-year-old G2, P1-0-0-1 at 39 weeks and 4 days of gestation who was scheduled for repeat on 11/12/18 due to history of prior and declined TOLAC/. She had repeat low transverse with Pfannenstiel skin incision on 11/12/2018. Her surgery was uncomplicated. She delivered a viable male at 0822 a.m. See dictated op note for details. HOSPITAL COURSE: On postop day #1, the patient was doing well. Vital signs stable, afebrile. Urine output was good. She was tolerating a regular diet, passing gas, ambulating without dizziness. Her physical exam was unremarkable. Abdomen is soft, nontender, nondistended. Incision was clean, dry, and intact. Bleeding was minimal. She was started on nicotine patch due to history of smoking. On postop day #2, the patient was doing well, ambulating without dizziness, voiding without problems, passing gas, tolerating a regular diet. Bleeding was minimal. She was her baby. Vital signs stable, afebrile. Physical exam was unremarkable. Incision was clean, dry and intact. She desired to go home on postop day #2 on 11/14/2018. Discharge instructions were given when to call, prescriptions were written for pain. She is to be seen in the office in a week for incision check. LEONA
== END 2018-11-14 13:00 | disposition home or self-care (01) | DRG 788 ==
LOC: 4S1 05:47 → EDSTATUS 07:30 → 4S2 13:08

== ENCOUNTER 2024-08-15 11:02 | Observation (INO) ==
[2024-08-15 11:50] LABS: Basophils # (auto) 0.06 K/uL (0.00-0.20); Basophils % (auto) 0.3 %; Eosinophils % (auto) 0.4 %; Hematocrit (blood only) 35.5 % (37.0-47.0); Hemoglobin 12.7 g/dl (12.0-16.0); Immature Granulocytes # (auto) 0.37 K/uL (0.01-0.20); Immature Granulocytes % (auto) 1.6 %; Mean Corpuscular Hemoglobin 29.5 pg (25.0-34.0); Mean Corpuscular Hgb Conc 35.8 g/dL (32.0-36.0); Mean Corpuscular Volume 82.6 fL (80.0-100.0); Mean Platelet Volume 10.8 fL (9.4-12.4); Monocytes # (auto) 1.68 K/uL (0.11-0.59); Monocytes % (auto) 7.4 %; Neutrophils # (auto) 17.43 K/uL (1.40-6.50); Neutrophils % (auto) 76.3 %; Platelet Count 311 K/uL (130-400); RDW Coefficient of Variation 12.8 % (11.5-14.5); RDW Standard Deviation 38.7 fL (36.4-46.3); White Blood Count 22.84 K/ul (4.8-10.8)
[2024-08-15] MEDS: SODIUM CHLORIDE 0.9% 1,000 ML IV ONE (11:54)
--- NOTE | 2024-08-15 11:54 | XRay Report ---
SINGLE VIEW CHEST CLINICAL HISTORY: Cough FINDINGS: An AP, portable, upright chest radiograph is compared to study dated 06/18/2008. The cardiom ediastinal silhouette is unremarkable. There is mild elevation of the right hemidiaphragm. The lungs and pleural spaces are clear. No pneumothorax is seen. The bony thorax is grossly intact. IMPRESSION: No active disease in the chest. ACT 112: Negative or not required by law. Electronically signed by: Gustavo Taylor M.D. 08/15/2024 11:52 AM
[2024-08-15 12:03] LABS: Partial Thromboplastin Ratio 1.1; Partial Thromboplastin Time 30 Seconds (21-31); Prothrombin Time 10.9 Seconds (9.0-12.0)
[2024-08-15 12:06] LABS: Calcium 9.6 mg/dl (8.6-10.3); Magnesium 1.6 mg/dl (1.7-2.4); Potassium 2.6 mmol/L (3.5-5.1)
--- NOTE | 2024-08-15 12:07 | Emergency Department Note ---
History of Present Illness General Chief complaint: Referred by Doctor Stated complaint: REF BY WENDY, FLU-LIKE SX Time Seen by Provider: 08/15/24 11:15 History of Present Illness Provider complaint: Referred by PCP 38-year-old female presents emergency department after being referred by the PCP. Patient reports that she has been having UTI-like symptoms. She reports dysuria. She reports she was recently on amoxicillin. She reports that she had a Tmax of 102. Patient reports she finished a 10-day course of antibiotics for UTI recently but then since started having dysuria again. Patient also reports having cough and congestion for the last 3 days. She reports she went to see her PCP who did blood work on her and told her potassium was low and referred her to the emergency department. She denies any chest pain or difficulty breathing. No palpitations. Home Medications Medication Instructions Recorded Confirmed Type clonazepam 1 mg tablet (Klonopin) 1 mg PO TID 10/22/18 08/15/24 History sertraline 100 mg tablet (Zoloft) 2 tabs PO DAILY 10/22/18 08/15/24 History docusate sodium 100 mg capsule 100 mg PO BID #60 caps 11/14/18 08/15/24 Rx ferrous sulfate 325 mg (65 mg 325 mg PO QAM #30 tabs 11/14/18 08/15/24 Rx iron) tablet,delayed release albuterol sulfate 90 mcg/actuation 1 inh inhalation QID PRN Shortness 08/15/24 08/15/24 History aerosol inhaler Of Breath dextroamphetamine-amphetamine ER 30 mg PO BID 08/15/24 08/15/24 History 30 mg 24hr capsule,extend release (Adderall XR) duloxetine 30 mg capsule,delayed 30 mg PO DAILY 08/15/24 08/15/24 History release duloxetine 60 mg capsule,delayed 60 mg PO DAILY 08/15/24 08/15/24 History release folic acid 1 mg tablet 1 mg PO DAILY 08/15/24 08/15/24 History Allergies Allergy/AdvReac Type Severity Reaction Status Date / Time Sulfa (Sulfonamide Allergy Severe VOMITING Verified 11/12/18 06:19 Antibiotics) Past Med/Surg History Problem List (Updated 08/15/24 @ 18:36 by Archie Berkowitz MD) Sepsis (Acute) UTI (urinary tract infection) (Acute) Hypomagnesemia Hypokalemia (Acute) delivery delivered Leukocytosis (Acute) Sinus congestion (Acute) Spontaneous (Acute) Vomiting and diarrhea (Acute) Encounter for pre-operative examination Medical History GERD (gastroesophageal reflux disease) Prediabetes Hypothyroidism IN PAST Anemia Temporomandibular joint disorder Post traumatic stress disorder Migraine Depression Anxiety Surgical History History of anesthesia reaction INCREASED ANXIETY History of tooth extraction History of dilatation and curettage (~12/06/11) History of section (~12/12/12) History of nasal septoplasty (~03/23/10) Family History Mother Hypertension Grandfather Stroke Father Myocardial infarction Social History Smoking Status: Current some day smoker Tobacco Type: Cigarettes Cigarettes Per Day: 30 sticks a day.; Second Hand Exposure: No; Do You Dip or Chew Tobacco: No; Tobacco Cessation Education Requested by Patient: No Hx Alcohol Use: No Hx Substance Use: No Preferred Language: Cymra[place] [employer]er Mechanic Required: No Beliefs That Will Affect Care: None marital status: Single Current Living Situation: Parent, Family and Significant Other Other Information That Helps Us Care for You: No Feels Safe at Home: Yes Safety Concerns: Feels Safe At This Time Assistive Devices: None Physical Exam Vital Signs Vital Signs - 24 hr 08/15/24 11:03 08/15/24 11:56 08/15/24 12:30 Temperature 36.6 C Temperature Source Temporal Artery Scan Pulse Rate 133 H 125 H 116 H Pulse Rhythm Regular Respiratory Rate 18 22 Blood Pressure 139/74 Blood Pressure Mean 95 Pulse Oximetry 100 98 Oxygen Delivery Method Room Air Sepsis Recent Fever Within 48 Hours No Sepsis New/Unexplained Change in Mental Status N/A Sepsis Action Taken by Nursing No Action Required 08/15/24 12:30 Temperature Temperature Source Pulse Rate 112 H Pulse Rhythm Respiratory Rate 24 Blood Pressure 145/94 H Blood Pressure Mean 97 Pulse Oximetry Oxygen Delivery Method Sepsis Recent Fever Within 48 Hours Sepsis New/Unexplained Change in Mental Status Sepsis Action Taken by Nursing Physical Exam GENERAL: She is oriented to person, place, and time. She appears well-developed and well-nourished. She does not appear distressed. HENT: Exam performed. -Head: Normocephalic and atraumatic. -Right Ear: External ear normal. No mastoid erythema -Left Ear: External ear normal. No mastoid erythema -Mouth/Throat: The oropharynx is clear and moist. No trismus in the jaw. No dental abscesses or uvula swelling. No oropharyngeal exudate or tonsillar abscesses. EYES: Conjunctivae and EOM are normal. Pupils are equal, round, and reactive to light. Right eye exhibits no discharge. Left eye exhibits no discharge. No scleral icterus. NECK: Normal range of motion. Neck supple. No JVD present. No rigidity. No tracheal deviation and normal range of motion present. CV: Tachycardic rate, regular rhythm, normal heart sounds and intact distal pulses. There is no peripheral edema. Palpable radial pulses bue. PULM/CHEST: Effort normal and breath sounds normal. No respiratory distress. No stridor. She has no wheezes. She has no rales. -Chest Wall: She exhibits no tenderness. ABD: The abdomen is soft. Bowel sounds are normal. She has no distension. No mass is present. There is no tenderness. There is no rebound, no guarding, no Bolden's sign and no tenderness at McBurney's point. Rovsig negative MUSC/SKEL: Normal range of motion. There is no peripheral edema, tenderness or deformity. LYMPH: No cervical adenopathy. NEURO: She is alert and oriented to person, place, and time. She has normal strength. No cranial nerve deficit or sensory deficit. Coordination and gait normal. GCS eye subscore is 4. GCS verbal subscore is 5. GCS motor subscore is 6. Cerebellar tests wnl. SKIN: Skin is warm and dry. She is not diaphoretic. PSYCH: She has a normal mood and affect. Behavior is normal. Judgment and thought content normal. Course Course 1115: The patient was evaluated in room B3. A complete history and physical exam was performed Cardiac monitoring: An order was placed for continuous cardiac monitoring. The monitor shows a rate of 120 with sinus tachycardia rhythm interpreted by me 1245: Vital signs stable, patient remains tachycardic. Labs show leukocytosis of 22.8. Lactic acid within normal limits. Potassium 2.6. Potassium please start in the emergency department. Procalcitonin elevated 1.86. Urinalysis is concerning for source of infection. Patient was started on Cipro as she finished course of amoxicillin recently. Patient will be admitted to the [facility] hospitalist team for sepsis and hypokalemia. Administered Medications Benzonatate (Benzonatate 100 Mg Capsule) 100 mg PO TID JUAN Stop: 09/14/24 16:59 Last Admin: 08/15/24 17:40 Dose: 100 mg Documented By: AADi Sodium Chloride (Nss) 1,000 mls @ 125 mls/hr IV .Q8H JUAN Stop: 08/15/24 20:59 Last Admin: 08/15/24 15:14 Dose: 125 mls/hr Documented By: CEF Nicotine (Nicotine 21 Mg/24 Hr Tdsy) 1 patch TD QAM JUAN Stop: 09/14/24 16:31 Last Admin: 08/15/24 17:39 Dose: 1 patch Documented By: AAL Discontinued Medications Sodium Chloride (Nss) 1,000 mls @ 999 mls/hr IV .Q1H1M ONE Stop: 08/15/24 12:23 Last Infusion: 08/15/24 12:55 Dose: Infused Documented By: Admin: 08/15/24 11:54 Dose: 999 mls/hr Documented By: CEF Ciprofloxacin (Cipro / D5w) 400 mg in 200 mls @ 100 mls/hr IV NOW STA; Protocol Stop: 08/15/24 14:38 Last Infusion: 08/15/24 15:24 Dose: Infused Documented By: Admin: 08/15/24 12:46 Dose: 100 mls/hr Documented By: CEF Potassium Chloride (K Reynaldo / Wtr) 10 meq in 100 mls @ 100 mls/hr IV Q1H JUAN Stop: 08/15/24 16:59 Last Infusion: 08/15/24 16:20 Dose: 0 mls/hr Documented By: Admin: 08/15/24 15:22 Dose: 100 mls/hr Documented By: CEF Magnesium Sulfate/Dextrose (Magnesium Sulfate / D5w) 1 gm in 100 mls @ 50 mls/hr IV ONE ONE Stop: 08/15/24 14:55 Last Infusion: 08/15/24 16:20 Dose: 0 mls/hr Documented By: Admin: 08/15/24 15:16 Dose: 50 mls/hr Documented By: KEITH Ioversol (Optiray 320 100ml) 94 ml IV ONCE ONE Stop: 08/15/24 13:44 Last Admin: 08/15/24 13:44 Dose: 94 ml Documented By: SUNNY Potassium Chloride (Potassium Chloride 10 Meq Tabcr) 40 meq PO NOW STA Stop: 08/15/24 12:29 Last Admin: 08/15/24 12:31 Dose: 40 meq Documented By: KEITH Potassium Chloride (Potassium Chloride Crtab 20 Meq Tabcr) 40 meq PO ONCE ONE Stop: 08/15/24 16:33 Last Admin: 08/15/24 17:43 Dose: 40 meq Documented By: LOLA Medical Decision Making Laboratory Data Attestation: I reviewed the patient's lab results. 08/15/24 11:35 08/15/24 11:35 Lab Results 08/15/24 08/15/24 08/15/24 Range/Units 11:23 11:35 12:01 WBC 22.84 H (4.8-10.8) K/ul RBC 4.30 (4.20-5.40) M/uL Hgb 12.7 (12.0-16.0) g/dl Hct 35.5 L (37.0-47.0) % MCV 82.6 (80.0-100.0) fL MCH 29.5 (25.0-34.0) pg MCHC 35.8 (32.0-36.0) g/dL RDW Std Deviation 38.7 (36.4-46.3) fL RDW Coeff of Megan 12.8 (11.5-14.5) % Plt Count 311 (130-400) K/uL MPV 10.8 (9.4-12.4) fL Immature Gran % (Auto) 1.6 % Neut % (Auto) 76.3 % Lymph % (Auto) 14.0 % [place] % (Auto) 7.4 % Eos % (Auto) 0.4 % Baso % (Auto) 0.3 % Neut # (Auto) 17.43 H (1.40-6.50) K/uL Lymph # (Auto) 3.20 (1.20-3.40) K/uL [place] # (Auto) 1.68 H (0.11-0.59) K/uL Eos # (Auto) 0.10 (0.00-0.50) K/uL Baso # (Auto) 0.06 (0.00-0.20) K/uL Immature Gran # (Auto) 0.37 H (0.01-0.20) K/uL PT 10.9 (9.0-12.0) Seconds INR 1.0 (0.9-1.1) APTT 30 (21-31) Seconds PTT Ratio 1.1 Sodium 139 (136-145) mmol/L Potassium 2.6 L (3.5-5.1) mmol/L Chloride 104 (98-107) mmol/L Carbon Dioxide 24 (21-32) mmol/L Anion Gap 11 (3-11) BUN 9 (6-23) mg/dl Creatinine 0.61 (0.6-1.2) mg/dl Est Cr Clr Drug Dosing 147.5 ml/min eGFR 118.75 BUN/Creatinine Ratio 14.8 (10-20) Glucose 95 (70-99(Fasting)) mg/dl Lactate 1.2 (0.4-2.0) mmol/L Calcium 9.6 (8.6-10.3) mg/dl Magnesium 1.6 L (1.7-2.4) mg/dl Procalcitonin 1.86 H (0-0.5) ng/ml Urine Color Yellow Urine Appearance Cloudy A (Clear) Urine pH 6.0 (4.5-7.5) Ur Specific [place] 1.004 (1.000-1.030) Urine Protein Negative (Negative) Urine Glucose (UA) Negative (Negative) Urine Ketones Negative (Negative) Urine Blood 1+ H (Negative) Urine Nitrite Negative (Negative) Urine Bilirubin Negative (Negative) Urine Urobilinogen Negative (Negative) Ur Leukocyte Esterase 3+ H (Negative) Urine WBC (Auto) >50 H (0-5) /hpf Urine RBC (Auto) 0-2 (0-2) /hpf U Hyaline Cast (Auto) 3-5 H (0-2) /lpf U Epithel Cells (Auto) 0-2 (0-2) /hpf Urine Bacteria (Auto) 4+ H (None Seen) Urine Test Negative (Negative) Adenovirus (PCR) Not Detected (NotDetected) B. pertussis DNA (PCR) Not Detected (NotDetected) B.parapertussis DNA PCR Not Detected (NotDetected) C. pneumoniae DNA (PCR) Not Detected (NotDetected) Coronavirus OC43 (PCR) Not Detected (NotDetected) Coronavirus HKU1 (PCR) Not Detected (NotDetected) Coronavirus 229E (PCR) Not Detected (NotDetected) SARS-CoV-2 (PCR) Not Detected (NotDetected) Coronavirus NL63 (PCR) Not Detected (NotDetected) Human Metapneumovir PCR Not Detected (NotDetected) Influenza Type A (PCR) Not Detected (NotDetected) Influenza Type B (PCR) Not Detected (NotDetected) M. pneumoniae (PCR) Not Detected (NotDetected) Parainfluenza 1 (PCR) Not Detected (NotDetected) Parainfluenza 2 (PCR) Not Detected (NotDetected) Parainfluenza 3 (PCR) Not Detected (NotDetected) Parainfluenza 4 (PCR) Not Detected (NotDetected) RSV (PCR) Not Detected (NotDetected) Entero/Rhino (PCR) DETECTED A (NotDetected) Imaging Data Attestation: I personally reviewed and interpreted this imaging study as follows: My Impression: Chest x-ray negative. Airway clear. No pneumothorax. No consolidation. No cardiomegaly or cephalization.. No free air under the diaphragm. No fractures of the skeletal structures. Radiologist's Impression: Chest X-Ray 08/15/24 11:27 SINGLE VIEW CHEST CLINICAL HISTORY: Cough FINDINGS: An AP, portable, upright chest radiograph is compared to study dated 06/18/2008. The cardiomediastinal silhouette is unremarkable. There is mild elevation of the right hemidiaphragm. The lungs and pleural spaces are clear. No pneumothorax is seen. The bony thorax is grossly intact. IMPRESSION: No active disease in the chest. ACT 112: Negative or not required by law. Electronically signed by: Gustavo Taylor M.D. 08/15/2024 11:52 AM Abdomen/Pelvis CT 08/15/24 12:56 CT SCAN OF THE ABDOMEN AND PELVIS COMBO CLINICAL HISTORY: Generalized abdominal pain. Dysuria. Leukocytosis. COMPARISON STUDY: Abdominal CT dated 07/11/2016. TECHNIQUE: Before and following the IV administration of 94 cc of Optiray 320, CT scan of the abdomen and pelvis is performed from the lung bases to the proximal femora. Images are reviewed in the axial, sagittal, and coronal planes. IV contrast was administered without complication. A dose lowering technique was utilized adhering to the principles of ALARA. CT DOSE: 1966.77 mGy.cm FINDINGS: Lung bases: The heart is normal in size and without pericardial effusion. The lung bases are clear noting dependent atelectasis. There is a tiny hiatal hernia. Liver: The contrast-enhanced liver is normal in size, contour, and attenuation. There is no intrahepatic biliary ductal dilatation. The hepatic veins and portal veins are patent. Gallbladder: Unremarkable. Spleen: Normal in size and attenuation. Pancreas: Unremarkable. Adrenal glands: Unremarkable. Kidneys: The contrast enhanced kidneys are normal in size and without hydronephrosis. No renal calculi are identified and there is no ureteral stone seen on the unenhanced series. The right kidney appears edematous, and demonstrates heterogeneously diminished enhancement as compared to the left with a striated nephrogram. There is urothelial thickening and enhancement seen in the right ureter and renal pelvis throughout surrounding inflammation and fullness of the right renal pelvis. The left kidney enhances normally. Abdominal vasculature: The abdominal aorta is normal in course and caliber. Bowel: There is no bowel obstruction. Moderate fecal retention is seen throughout the colon. The appendix is well-visualized and normal. Peritoneum: There is no intraperitoneal free air or abdominal ascites. There is a fat-containing umbilical hernia. A navel piercing is in place. Lymphadenopathy: None. Pelvic viscera: The bladder wall appears thickened with mucosal hyperemia and surrounding infiltration. The uterus and adnexa are normal as visualized noting bilateral ovarian follicles. Skeletal structures: No lytic or blastic lesions are seen. IMPRESSION: There is evidence of cystitis with ascending urinary tract infection/pyelonephritis on the right. Correlate with clinical findings and urinalysis ACT 112: Negative or not required by law. Electronically signed by: Gustavo Taylor M.D. 08/15/2024 2:07 PM ECG Data Attestation: I personally reviewed and interpreted this ECG as follows: Rate (beats per minute): 126 Rhythm: + sinus tachycardia ECG Intervals/blocks: + Normal SD and + Normal QT-c ECG ST segments: + Normal ST segments Additional Comments: QRS 76 MDM Narrative 1115: The patient was evaluated in room B3. A complete history and physical exam was performed Cardiac monitoring: An order was placed for continuous cardiac monitoring. The monitor shows a rate of 120 with sinus tachycardia rhythm interpreted by me 1245: Vital signs stable, patient remains tachycardic. Labs show leukocytosis of 22.8. Lactic acid within normal limits. Potassium 2.6. Potassium please start in the emergency department. Procalcitonin elevated 1.86. Urinalysis is concerning for source of infection. Patient was started on Cipro as she finished course of amoxicillin recently. Patient will be admitted to the [facility] Hospitalist team for sepsis and hypokalemia. Impression & Plan Sepsis, Hypokalemia, UTI (urinary tract infection) Discharge Plan Visit Data Chief Complaint: Referred by Doctor Stated Complaint: REF BY DOC, FLU-LIKE SX ED Provider: Archie Berkowitz Discharge Problem: Sepsis, Hypokalemia, UTI (urinary tract infection) Patient Disposition: Admitted As Inpatient Discharge Instructions Interventions: ED Discharge Assessment Last Done: 08/15/24 16:06 Discharge Problem: Sepsis Qualifiers: Sepsis type: sepsis due to unspecified organism Sepsis acute organ dysfunction status: unspecified Qualified Code(s): A41.9 - Sepsis, unspecified organism
[2024-08-15 12:11] LABS: Pregnancy Test, Urine Negative (Negative)
[2024-08-15 12:12] LABS: BUN Creatinine Ratio 14.8 (10-20); Creatinine Clr Calc Pharmacy 147.5 ml/min
[2024-08-15 12:12] LABS: Appearance Urine Cloudy (Clear); Bacteria Urine Automated 4+ (None Seen); Bilirubin Urine Negative (Negative); Blood Urine 1+ (Negative); Color Urine Yellow; Epithelial Cell Urine Auto 0-2 /hpf (0-2); Glucose Urine UA Negative (Negative); Ketones Urine Negative (Negative); Leukocyte Esterase Urine 3+ (Negative); Nitrite Urine Negative (Negative); Protein Urine Negative (Negative); RBC Urine Automated 0-2 /hpf (0-2); Specific Gravity Urine 1.004 (1.000-1.030); Urobilinogen Urine Negative (Negative); WBC Urine Automated >50 /hpf (0-5)
[2024-08-15] MEDS: POTASSIUM CHLORIDE 10 MEQ TABCR PO STA (12:31)
[2024-08-15] MEDS: CIPROFLOXACIN / D5W 400 MG/200 ML BAG IV STA (12:46)
--- NOTE | 2024-08-15 13:10 | History & Physical Report ---
Date of Service August 15, 2024 Assessment & Plan (1) Hypokalemia: (2) Hypomagnesemia: (3) UTI (urinary tract infection): (4) Leukocytosis: Plan: UTI Leukocytosis Sepsis -Admit to telemetry -Heart rate noted to be 120 upon arrival, WBC 22K, Pro-Malcolm 1.84 suspected urinary source with diffusely infected appearing UA, urine culture is in process. - UA was obtained as outpatient on 08/14, cultures in process, no results at this time. -Blood culture x 1 -Check CT abdomen pelvis with/without contrast to rule out intra-abdominal abscess, evaluate ovarian cyst, rule out urological source such as pyelonephritis with recent 10-day course of antibiotic therapy -Status post 1 L NSS, continue 125 mL/h x 1 bag Enterovirus/rhinovirus upper respiratory infection -Treat with supportive therapy -Recent sick contact, child -Mucinex, flutter, Tessalon Perle, cough drops prn Hypokalemia Hypomagnesemia -Given 40 mEq p.o. potassium in the ER, give additional 40 mEq IV now, additional 40 mEq p.o. this evening -1 g mag IV Tobacco use Nicotine Dependence -Patient admits to vaping nicotine and smoking cigarettes, approximately 1 pack/day -Nicotine patch ordered -Cessation encouraged at bedside Mood disorder Anxiety - Following with Dr. Alexandria Chin as outpt psych: on clonazepam 1 mg TID, Adderall ER 30 mg BID, PDMP reviewed personally - Continue cymbalta 90 mg QAM - Zoloft 200 mg daily DVT ppx: teds, scds Lines: PIV x 1 FEN/GI: Regular diet CODE: Full code Dispo: From home, patient expresses that she does not want to stay in the h ospital but was strongly counseled on the benefit from overnight admission due to low electrolyte levels. She is likely to remain in the hospital x 1 day A total of 75 minutes were spent with greater than 50% of that time face to face with the patient, personally reviewing all current laboratories, imaging studies, past medication reconciliation, outpatient chart review, and discussion with specialists to collaborate care for the patient with attending. Please see attending documentation for corrections and/or additions. History of Present Illness Chief Complaint: Referred by PCP for low potassium Primary Care Provider: Charanjit Ortiz MD This is a 38-year-old female with PMHx of migraine, mood disorder, anxiety, recently battling acute sinusitis since prior to 07/28 where she initially saw her PCP. At that point in time symptoms had been going on for 14 days. She was given antibiotics of amoxicillin 875 mg x 10 days and 1 dose of fluconazole 150 mg tablet to prevent vaginal yeast infection. Since that time she week return to her PCP office on 08/14 with complaints of persistent cough as well as dysuria. She reports that today she felt overall well, but was told to come to the hospital due to low potassium of 2.6. Pt completed antibiotic 4 days ago. She does admit to having right flank pain intermittently, and has a right ovarian cyst which is known about. She had fever 102 F 48 hrs ago, and has been using tylenol and ibuprofen alternating intermittently, last taken this morning. Pt is having cough and mucous production x 5 days still. She has a child who is also sick with the same runny nose/mucous production. Patient is adamant that she does not want to be admitted. She states " I can just go buy bananas and eat some of those to increase my potassium" several times during our visit. It was strongly encouraged that she stay in hospital for admission due to lab studies and electrolyte replacement. Her fiance and cousin are present at bedside and are supportive of her staying. Pt also endorses severe anxiety of being alone and is asking if one of them can stay overnight with her. We discussed pt visiting hours and that it would be dependent on if she has a roommate during admission. Outpatient UA was obtained and appeared to be grossly infected with elevated urine WBC, esterase, bacteria 4+. Labs were drawn and due to low potassium she was referred to the ER for replacement. Here patient is found to have a WBC of 22.8, potassium 2.6, magnesium 1.6, and procalcitonin 1.86 Social Hx: vapes nicotine, smokes cigarettes 0.5-1 ppd, denies marijuana or illicit drug use. Allergies Allergy/AdvReac Type Severity Reaction Status Date / Time Sulfa (Sulfonamide Allergy Severe VOMITING Verified 11/12/18 06:19 Antibiotics) Home Medications Medication Instructions Recorded Confirmed Type clonazepam 1 mg tablet (Klonopin) 1 mg PO TID 10/22/18 08/15/24 History sertraline 100 mg tablet (Zoloft) 2 tabs PO DAILY 10/22/18 08/15/24 History docusate sodium 100 mg capsule 100 mg PO BID #60 caps 11/14/18 08/15/24 Rx ferrous sulfate 325 mg (65 mg 325 mg PO QAM #30 tabs 11/14/18 08/15/24 Rx iron) tablet,delayed release albuterol sulfate 90 mcg/actuation 1 inh inhalation QID PRN Shortness 08/15/24 1 History aerosol inhaler Of Breath dextroamphetamine-amphetamine ER 30 mg PO BID 08/15/24 08/15/24 History 30 mg 24hr capsule,extend release (Adderall XR) duloxetine 30 mg capsule,delayed 30 mg PO DAILY 08/15/24 08/15/24 History release duloxetine 60 mg capsule,delayed 60 mg PO DAILY 08/15/24 08/15/24 History release folic acid 1 mg tablet 1 mg PO DAILY 08/15/24 08/15/24 History Past Med/Surg History Problem List (Updated 08/15/24 @ 13:07 by Irma Jones PA-C) UTI (urinary tract infection) Hypomagnesemia Hypokalemia delivery delivered Leukocytosis (Acute) Sinus congestion (Acute) Spontaneous (Acute) Vomiting and diarrhea (Acute) Encounter for pre-operative examination Medical History GERD (gastroesophageal reflux disease) Prediabetes Hypothyroidism IN PAST Anemia Temporomandibular joint disorder Post traumatic stress disorder Migraine Depression Anxiety Surgical History History of anesthesia reaction INCREASED ANXIETY History of tooth extraction History of dilatation and curettage (~12/06/11) History of section (~12/12/12) History of nasal septoplasty (~03/23/10) Family History Mother Hypertension Grandfather Stroke Father Myocardial infarction Social History Smoking Status: Current every day smoker Tobacco Type: Cigarettes and E-cigarettes / Vaping Cigarettes Per Day: 30 sticks a day.; Second Hand Exposure: Yes; Do You Dip or Chew Tobacco: Yes; Hx Alcohol Use: No Hx Substance Use: No Preferred Language: Macedonian Beliefs That Will Affect Care: None marital status: Single Current Living Situation: Family Feels Safe at Home: Yes Assistive Devices: None Review of Systems Review of Systems: Constitutional: + fever as per HPI, no sweats or chills Eyes: No diplopia, no worsening or blurred vision ENT: normal hearing, no trouble swallowing Respiratory: + cough, +sputum, no dyspnea at rest or on exertion Cardiovascular: No chest pain, tightness or palpitations Abdomen: No pain, nausea, vomiting, diarrhea or constipation : no dysuria, increased frequencpy or hematuria Musculoskeletal: No joint pain, calf pain, swelling Neurologic: No weakness, numbness/tingling, or balance problems Psychiatric: + anxiety and depression Skin: No rash or itch Physical Exam Physical Exam: General: awake, alert, no apparent distress Head: Normocephalic, atraumatic ENT: PERRL, EOMI, +erythematous pharynx without pharyngeal exudate, mucous membranes moist Cardiac: HR in 1120-120s on bedside monitor Abdominal: NABS x 4 quadrants, no CVA tenderness with percussion, soft, nondistended, nontender to palpation, no rebound or guarding Extremities: Normal inspection, no peripheral edema or erythema, calfs nontender to palpation Psych: Anxious and irritable mood and affect Neuro: AAO x 3, no motor deficits, speech is clear Please refer to physician addendum for additional PE findings. Results & Data Results & Data Vital Signs (Past 12 Hours) Vital Signs Temp Pulse Resp BP Pulse Ox O2 Del Method 08/15/24 12:30 116 H 08/15/24 11:56 125 H 22 98 Room Air 08/15/24 11:03 36.6 C 133 H 18 139/74 100 Laboratory Results 08/15/24 11:23 Urine Culture - Pending Urine,Clean Catch 08/15/24 12:07 Aerobic Blood Culture - Pending Blood Anaerobic Blood Culture - Pending 08/15/24 11:35 Aerobic Blood Culture - Pending Blood Anaerobic Blood Culture - Pending 08/15/24 08/15/24 11:35 11:23 WBC 22.84 H RBC 4.30 Hgb 12.7 Hct 35.5 L MCV 82.6 MCH 29.5 MCHC 35.8 RDW Std Deviation 38.7 RDW Coeff of Megan 12.8 Plt Count 311 MPV 10.8 Immature Gran % (Auto) 1.6 Neut % (Auto) 76.3 Lymph % (Auto) 14.0 Dale % (Auto) 7.4 Eos % (Auto) 0.4 Baso % (Auto) 0.3 Neut # (Auto) 17.43 H Lymph # (Auto) 3.20 Dale # (Auto) 1.68 H Eos # (Auto) 0.10 Baso # (Auto) 0.06 Immature Gran # (Auto) 0.37 H PT 10.9 INR 1.0 APTT 30 PTT Ratio 1.1 Sodium 139 Potassium 2.6 L Chloride 104 Carbon Dioxide 24 Anion Gap 11 BUN 9 Creatinine 0.61 Est Cr Clr Drug Dosing 147.5 eGFR 118.75 BUN/Creatinine Ratio 14.8 Glucose 95 Lactate 1.2 Calcium 9.6 Magnesium 1.6 L Procalcitonin 1.86 H Urine Color Yellow Urine Appearance Cloudy A Urine pH 6.0 Ur Specific [place] 1.004 Urine Protein Negative Urine Glucose (UA) Negative Urine Ketones Negative Urine Blood 1+ H Urine Nitrite Negative Urine Bilirubin Negative Urine Urobilinogen Negative Ur Leukocyte Esterase 3+ H Urine WBC (Auto) >50 H Urine RBC (Auto) 0-2 U Hyaline Cast (Auto) 3-5 H U Epithel Cells (Auto) 0-2 Urine Bacteria (Auto) 4+ H Urine Test Negative Diagnostic Findings Chest X-Ray 08/15/24 11:27 SINGLE VIEW CHEST CLINICAL HISTORY: Cough FINDINGS: An AP, portable, upright chest radiograph is compared to study dated 06/18/2008. The cardiomediastinal silhouette is unremarkable. There is mild elevation of the right hemidiaphragm. The lungs and pleural spaces are clear. No pneumothorax is seen. The bony thorax is grossly intact. IMPRESSION: No active disease in the chest. ACT 112: Negative or not required by law. Electronically signed by: Gustavo Taylor M.D. 08/15/2024 11:52 AM Code Status & VTE Plan Code Status Full code - discussed with pt at bedside Supervising Physician Co-Signing Physician Notes 38-year-old lady with PMH of migraine, mood disorder, anxiety was sent to the ED by PCP office due to low potassium [2.6] drawn yesterday. Patient reports she recently completed amoxicillin about 4 to 5 days ago since when she started having cough/congestion symptoms. She also reports rt lower abdominal pain with on and off dysuria symptoms. Patient reports having fever until 2 days ago, reports no fever in the last 2 days. Labs reviewed, leukocytosis noted, potassium of 2.6, magnesium of 1.6, procalcitonin 0.26. Urinalysis suggestive of UTI Respiratory viral panel positive for entero-/rhinovirus. CXR with no acute process. CTAP with evidence of cystitis with ascending urinary tract infection/pyelonephritis on the right. Active problems: Rhinovirus URTI: Symptomatic management, droplet precaution. Right pyelonephritis/complicated UTI/Sepsis PoA: UTI + elevated HR and WBC. Patient started on Cipro in the ED, continue with same. Follow admitting and 08/14 urine culture. follow admitting blood culture. Hypokalemia and hypomagnesemia: Replete 120 mEq of potassium today, repeat potassium level around 4 PM, labs in AM. Replete on Mg IV magnesium. For other chronic medical conditions: Continue with/resume home meds as when able. On exam: GENERAL: Alert and oriented x3. NAD, on RA. HEENT: No pallor, no icterus. Pupils equal, round and reactive to light. Oral mucosa moist. NECK: No JVD, no neck masses. HEART: S1 and S2 heard. Regular rate and rhythm. tachy in 110s. No murmur, no gallop. RESPIRATORY SYSTEM: Normal AP diameter. No accessory muscle use. No wheezing, no crackles. ABDOMEN: Soft, bowel sounds present, nontender, no distention. CENTRAL NERVOUS SYSTEM: No facial droop. Speech is clear. Obeys simple commands. Moves extremities. EXTREMITIES: No edema, no erythema seen. No CVA angle tenderness. I have seen and examined the patient and have discussed the case with the provider above. I agree with the assessment and plan as stated. time spent: 30 min.
[2024-08-15 13:27] LABS: Adenovirus PCR Not Detected (NotDetected); Bordetella parapertussis PCR Not Detected (NotDetected); Bordetella pertussis PCR Not Detected (NotDetected); Chlamydia pneumoniae PCR Not Detected (NotDetected); Coronavirus 229E PCR Not Detected (NotDetected); Coronavirus CoV-2 (COVID19)PCR Not Detected (NotDetected); Coronavirus HKU1 PCR Not Detected (NotDetected); Coronavirus NL63 PCR Not Detected (NotDetected); Coronavirus OC43PCR Not Detected (NotDetected); Human Metapneumovirus PCR Not Detected (NotDetected); Influenza A PCR Not Detected (NotDetected); Influenza B PCR Not Detected (NotDetected); Mycoplasma pneumoniae PCR Not Detected (NotDetected); Parainfluenza Virus 1 PCR Not Detected (NotDetected); Parainfluenza Virus 2 PCR Not Detected (NotDetected); Parainfluenza Virus 3 PCR Not Detected (NotDetected); Parainfluenza Virus 4 PCR Not Detected (NotDetected); Respiratory Syncytial VirusPCR Not Detected (NotDetected); Rhinovirus/Enterovirus PCR DETECTED (NotDetected)
[2024-08-15] MEDS: OPTIRAY 320 100ml IV ONE (13:44)
--- NOTE | 2024-08-15 14:08 | CT Scan Report ---
CT SCAN OF THE ABDOMEN AND PELVIS COMBO CLINICAL HISTORY: Generalized abdominal pain. Dysuria. Leukocytosis. COMPARISON STUDY: Abdominal CT dated 07/11/2016. TECHNIQUE: Before and following the IV administration of 94 cc of Optiray 320, CT scan of the abdome n and pelvis is performed from the lung bases to the proximal femora. Images are reviewed in the axia l, sagittal, and coronal planes. IV contrast was administered without complication. A dose lowering t echnique was utilized adhering to the principles of ALARA. CT DOSE: 1966.77 mGy.cm FINDINGS: Lung bases: The heart is normal in size and without pericardial effusion. The lung bases are clear no ting dependent atelectasis. There is a tiny hiatal hernia. Liver: The contrast-enhanced liver is normal in size, contour, and attenuation. There is no intrahepa tic biliary ductal dilatation. The hepatic veins and portal veins are patent. Gallbladder: Unremarkable. Spleen: Normal in size and attenuation. Pancreas: Unremarkable. Adrenal glands: Unremarkable. Kidneys: The contrast enhanced kidneys are normal in size and without hydronephrosis. No renal calcul i are identified and there is no ureteral stone seen on the unenhanced series. The right kidney appea rs edematous, and demonstrates heterogeneously diminished enhancement as compared to the left with a striated nephrogram. There is urothelial thickening and enhancement seen in the right ureter and ana rosa l pelvis throughout surrounding inflammation and fullness of the right renal pelvis. The left kidney enhances normally. Abdominal vasculature: The abdominal aorta is normal in course and caliber. Bowel: There is no bowel obstruction. Moderate fecal retention is seen throughout the colon. The appe ndix is well-visualized and normal. Peritoneum: There is no intraperitoneal free air or abdominal ascites. There is a fat-containing umbi lical hernia. A navel piercing is in place. Lymphadenopathy: None. Pelvic viscera: The bladder wall appears thickened with mucosal hyperemia and surrounding infiltratio n. The uterus and adnexa are normal as visualized noting bilateral ovarian follicles. Skeletal structures: No lytic or blastic lesions are seen. IMPRESSION: There is evidence of cystitis with ascending urinary tract infection/pyelonephritis on th e right. Correlate with clinical findings and urinalysis ACT 112: Negative or not required by law. Electronically signed by: Gustavo Taylor M.D. 08/15/2024 2:07 PM
--- NOTE | 2024-08-15 14:58 | Electrocardiogram Report ---
Test Reason : Blood Pressure : */* mmHG Vent. Rate : 126 BPM Atrial Rate : 126 BPM P-R Int : 142 ms QRS Dur : 76 ms QT Int : 290 ms P-R-T Axes : 33 43 -4 degrees QTcB Int : 420 ms Sinus tachycardia Nonspecific T wave abnormality Abnormal ECG No previous ECGs available Confirmed by Daniel Pate ([id number]) on 08/15/2024 2:57:38 PM Referred By: Confirmed By: Daniel Pate
[2024-08-15] MEDS: SODIUM CHLORIDE 0.9% 1,000 ML IV SCH (15:14)
[2024-08-15] MEDS: MAGNESIUM SULFATE / D5W 1 GM/100 ML BAG IV ONE (15:16)
[2024-08-15] MEDS: POTASSIUM CHLORIDE / WTR 10 MEQ/100 ML PLCT IV SCH (15:22)
[2024-08-15] MEDS ORDERED: ONDANSETRON INJ 2 MG/ML 2 ML VIAL IV PRN (16:32)
[2024-08-15] MEDS ORDERED: ACETAMINOPHEN 325 MG TAB PO PRN (16:32)
[2024-08-15] MEDS ORDERED: COUGH DROP (SUGAR FREE) LOZ 24 LOZ/1 BOX BUCCAL PRN (16:32)
[2024-08-15 17:02] VITALS: BP 136/92; RESP 20; TEMP 97.5; O2SAT 100
[2024-08-15] MEDS: NICOTINE 21 MG/24 HR TDSY TD SCH (17:39)
[2024-08-15] MEDS: BENZONATATE 100 MG CAPSULE PO SCH (17:40)
[2024-08-15] MEDS: POTASSIUM CHLORIDE CRTAB 20 MEQ TABCR PO ONE (17:43)
[2024-08-15 18:07] VITALS: PULSE 113
--- NOTE | 2024-08-15 20:29 | Communication Note ---
Date of Service: August 15, 2024 Patient signed out AMA before seeing the patient. No discharge instructions given
[2024-08-15] MEDS ORDERED: guaiFENesin 600 MG TABCR PO SCH (21:00)
--- OUTSIDE RECORDS SUMMARY | 2024-08-15 23:16 | External Medical Summary ---
Author Name Unknown Address Unknown Organization [id number]:LABORATORY [facility] [place] - [address] [facility] [address] Laboratory Report Ordering Provider Test Date Status LIAT STOLL 08/14/2024 12:00:07 Final Observation Date Value Abnormality Reference (Units ) Status SYNC LEUKOCYTES IN BLOOD BY AUTOMATED COUNT 08/14/2024 12:00:07 21.55 Above high normal 4.00-10.80 (K/uL) Final Segs 08/14/2024 12:00:07 84.5 Above high normal 40.0-75.0 (%) Final Lymphs % 08/14/2024 12:00:07 7.5 Below low normal 18.0-42.0 (%) Final Monos 08/14/2024 12:00:07 6.3 1.0-11.0 (%) Final Eosinophils 08/14/2024 12:00:07 0.3 0.0-6.0 (%) Final Basos 08/14/2024 12:00:07 0.2 0.0-2.0 (%) Final Immature Granulocyte, Percent 08/14/2024 12:00:07 1.2 0.0-2.0 (%) Final Absolute Segs 08/14/2024 12:00:07 18.21 Above high normal 1.80-7.70 (K/uL) Final Lymphs, absolute 08/14/2024 12:00:07 1.62 1.00-4.80 (K/ul) Final Monos, Abs 08/14/2024 12:00:07 1.36 Above high normal 0.00-1.10 (K/uL) Final Eos, Abs 08/14/2024 12:00:07 0.07 0.00-0.70 (K/uL) Final Basos, Abs 08/14/2024 12:00:07 0.04 0.00-0.20 (K/uL) Final Immature Granulocytes, Number 08/14/2024 12:00:07 0.25 Above high normal 0.00-0.20 (K/uL) Final Performing Location LABORATORY [facility] [place] - [address] [facility] [address]
--- OUTSIDE RECORDS SUMMARY | 2024-08-15 23:16 | External Medical Summary ---
Author Name Unknown Address Unknown Organization [id number]:[facility] [place] [facility] [address] [facility] [address] Laboratory Report Ordering Provider Test Date Status LIAT STOLL 08/14/2024 12:00:07 Final Observation Date Value Abnormality Reference (Units ) Status WBC, Total 08/14/2024 12:00:07 21.55 Above high normal 4.00-10.80 (K/uL) Final RBC 08/14/2024 12:00:07 4.23 3.85-5.15 (M/uL) Final Hemoglobin 08/14/2024 12:00:07 12.5 12.0-15.3 (g/dL) Final HCT 08/14/2024 12:00:07 38.1 36.0-45.2 (%) Final MCV 08/14/2024 12:00:07 90.1 81.5-97.5 (fL) Final MCH 08/14/2024 12:00:07 29.6 27.0-34.0 (pg) Final MCHC 08/14/2024 12:00:07 32.8 32.0-36.0 (g/dL) Final RDW 08/14/2024 12:00:07 12.8 11.5-15.5 (%) Final Platelets 08/14/2024 12:00:07 285 140-400 (K/uL) Final MPV 08/14/2024 12:00:07 12.4 6.6-11.1 (fL) Final Nucleated erythrocytes/100 leukocytes [Ratio] in Blood by Automated count 08/14/2024 12:00:07 0 <=0 (/100 WBCs) Final Performing Location [facility]ORY [facility] [place] [address] [place] [id number]
--- OUTSIDE RECORDS SUMMARY | 2024-08-15 23:16 | External Medical Summary ---
Author Name Unknown Address Unknown Organization [id number]:LABORATORY [facility] [place] - [address] [place] [address] Laboratory Report Ordering Provider Test Date Status LIAT STOLL 08/14/2024 12:00:07 Final Observation Date Value Abnormality Reference (Units ) Status CRP, low-sensitivity 08/14/2024 12:00:07 367 Above high normal <=5 (mg/L) Final Performing Location LABORATORY [facility] [place] - [address] [place] [address]
--- OUTSIDE RECORDS SUMMARY | 2024-08-15 23:16 | External Medical Summary | Summary of Care ---
Author Name Unknown Organization [facility] Address [address] [place] [address] Phone [phone] Care Team Providers Care Party Plan Sales Unit Sales Leader Name Role Phone Charanjit Ortiz MD Primary Care Provider [phone]- [phone] Reason for Visit * Reason Comments Outpatient Testing Encounter Details Date Type Department Care Team (Late st Contact Info) Description 08/14/2024 12:00 PM EDT Laboratory [facility], [place] [address] [place] [address] [place] [address] [place] [address] Fever, unspecified fever cause; Feeling sick Allergies Active Allergy Reactions Criticality Noted Date Comments Sulfa Antibiotics 01/03/2001 Rash documented as of this encounter (statuses as of 08/14/2024) Medications Medication Sig Dispensed Refills Start Date End Date Status sertraline (ZOLOFT) 100 MG TabletIndications:2 tabs daily Take 1 Tablet by mouth in the morning. 11/12/2015 Active DULoxetine (DULOXETINE) 20 MG CPEP Take 1 Cap by mouth daily. Do not cut, crush or chew 30 Cap 1 02/13/2020 Active clonazePAM 1 MG Oral Tablet (KlonoPIN) take 1 tablet by mouth three times a day 90 Tab 2020 Active Amphetamine-Dextroam phet ER 25 MG Oral Capsule Extended Release 24 Hour (Adderall XR) Take 1 Capsule by mouth in the morning. Every morning.. 08/04/2021 Active Vitamin D (Ergocalciferol) 1.25 MG (97900 UT) Oral Capsule Take 1 Capsule by mouth once a week. 02/15/2022 Active Folic Acid 1 MG Oral Tablet Take 1 Tablet by mouth in the morning and 1 Tablet before bedtime. 03/02/2022 Active Albuterol Sulfate HFA 108 (90 Base) MCG/ACT Inhalation Aerosol SolutionIndications: Bronchitis, complicated,Sinobron chitis inhale 2 puffs by mouth four times a day if needed wheezing May substitute proventil or proair based on formulary 18 g 1 10/24/2022 Active DULoxetine HCl 60 MG Oral Capsule Delayed Release Particles (Cymbalta) 06/18/2023 Active Amphetamine-Dextroam phet ER 20 MG Oral Capsule Extended Release 24 Hour 08/14/2023 Active Fluconazole 150 MG Oral Tablet (Diflucan) Take 1 tab. If in 72 hours from first dose symptoms are not resolved, please take second tab. 2 Tablet 07/28/2024 Active Fluticasone Propionate 50 MCG/ACT Nasal SuspensionIndication s:Acute sinusitis, recurrence not specified, unspecified location,Sinobronchi tis Administer 2 Sprays into each nostril in the morning. 1 Each 1 08/14/2024 Active Cetirizine HCl 10 MG Oral Tablet (ZyrTEC) Take 1 Tablet by mouth in the morning. 90 Tablet 3 08/14/2024 Active documented as of this encounter (statuses as of 08/14/2024) Active Problems Problem Noted Date Diagnosed Date delivery delivered 08/21/2023 Spontaneous 08/21/2023 Anxiety and depression 11/20/2012 Insulin resistance 05/21/2012 Overview: Taking metformin at NOB, advised to d/c at 12 weeks. Passed Glucola. 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 Advised clonazepam is category D medication, needs to d/c with help of Dr. Osborn. Clonidine and Zoloft category C meds, risk/benefit discussed. F/u at next visit 08/02/2012- pt still taking clonazepam, clonidine, and zoloft. Declines MFM originally, then seen by MFM. Zoloft, Clonopin acceptable under Dr. Osborn's supervision. ICD-10 update of inactive term Deviated nasal septum 01/28/2010 Hypertrophy of nasal turbinates 01/28/2010 Tobacco use disorder 06/12/2005 Overview: Smoking 1ppd of cigarettes at [facility] visit (down from 2ppd). Monitor through . Discussed with MFM. Nicorette and Zyban safer than cigarettes. CLASSICAL MIGRAINE WITHOU MENTION OF INTRACTABLE MIGRAINE 05/06/2002 Idiopathic scoliosis 07/26/2001 documented as of this encounter (statuses as of 08/14/2024) Resolved Problems Problem Noted Date Diagnosed Date Resolved Date Major depressive disorder, r ecurrent, in partial remission 06/19/2019 10/19/2023 Abnormal glucose tolerance i n mother complicating 09/04/2018 11/12/2018 Tobacco smoking complicating 04/04/2018 11/12/2018 Overview: Smoking 2ppd at [facility], planning to quit. Monitor through . Adjustment disorder with mix ed anxiety and depressed mood 04/04/2018 11/12/2018 Overview: Taking zoloft and clonazepam. Advised against clonazepam, f/u with psychologist who prescribes Previous section 04/04/2018 Overview: Undecided regarding TOLAC or repeat c/s Hyperinsulinemia 04/04/2018 11/12/2018 Overview: On metformin for ?elevated insulin level. Advised to stop at end of 1st trimester, will need early glucola after d/c. Other specified fever 11/12/20152016 Family history of congenital cardiac septal defect 10/23/2012 04/13/2017 Overview: Will get records on sister. Echo done. Family history of sudden cardiac (SCD) 2 04/13/2017 Overview: Father, 43. MFM consult. Paternity testing 10/23/2012 11/28/2012 Overview: Desired at FOB's request per pt.-- now declines Medication exposure during f irst trimester of 10/09/2012 04/13/2017 Overview: MFM consult Rh negative, antepartum 05/22/201206/2019 Overview: Rhogam candidate Rhogam given 09/13/18 Itzel Munoz LPN Encounter for supervision of other normal , unspecified trimester 05/21/2012 019 Chlamydia trachomatis infect ion of lower genitourinary site 03/13/2011 04/13/2017 Anxiety state 07/12/2010 11/08/2018 COSTOCHONDRITIS 07/12/2010 05/21/2012 Need for diphtheria-tetanus- pertussis (Tdap) vaccine 07/12/2010 10/09/2012 Acquired deformity of nose 01/28/2010 0 04/13/2017 ACUTE PHARYNGITIS 06/27/2006 12/31/2008 Overview: Resolved per Benign Acute Dxs Protocol #3 Abdominal pain, generalized 06/12/2005 05/21/2012 Hematuria 06/12/2005 05/21/2012 Overview: ICD-10 update of inactive term SLOW TRANSIT CONSTIPATION/OBSTIPATION 06/12/2005 05/21/2012 ACUTE CYSTITIS 06/12/2005 12/31/2008 Overview: Resolved per Benign Acute Dxs Protocol #3 Dysuria 06/12/2005 05/21/2012 Tobacco use disorder 02/15/2004 008 Allergic rhinitis 07/15/2002 05/21/2012 documented as of this encounter (statuses as of 08/14/2024) Immunizations Name Administration Dates Next Due COVID-19 mRNA, LNP-s, No Pre serve, 2-Dose Series (Moderna) 04/01/2021,03/01/2021 PPD 07/18/2019 Pneumococcal Conjugate Vacci ne, 20-valent ([id number]) 10/19/2023 Pneumococcal Polysaccharide PPV23 (Pneumovax) 07/20/2010 Seasonal Influenza Vac., MDV , IM, 0.5 mL (Fluzone) 11/19/2014,09/25/2012,10/23/2011,08/13 Seasonal Influenza, PF, 6 M & above, IM , (FluLaval or Fluzone) 09/01/2019,09/13/2018 TDAP (age 10 and older)(Boostrix) 09/13/2018 TDAP, Age 7 and older, IM (Adacel) 07/12/2010 documented as of this encounter Social History Tobacco Use Types Packs/Day Years Used Date Smoking Tobacco: Every Day Cigarettes 0.5 6 Vaporizer Passive Smoke Exposure: Past Smokeless Tobacco: Never Comments:2 ppd Alcohol Use Standard Drinks/Week Comments Yes 0 (1 standard drink = 0.6 oz pur e alcohol) social, none since PHQ-2 Answer Date Recorded PHQ-2 Score -1 09/10/2018 Hunger Vital Sign Answer Date Recorded Worried About Running Out of Food in the Last Ye ar Never true 12/02/2019 Ran Out of Food in the Last Year Never true 12/02/2019 Utilities Answer Date Recorded Do you have trouble paying y our heating, water, or electric bill? (Adult - for ages 18 years and over) Not on file 04/22/2024 Is your family able to pay t he heat, water, or electric bill? (Household - for ages 0-17 years) Not on file 04/22/2024 Does your family have access to good internet? (Household - for ages 0-17 years) Not on file 04/22/2024 Social Connections Answer Date Recorded How often do you feel lonely or isolated from those around you? (Adult - for ages 18 years and over) Not on file 04/22/2024 Sex and Gender Information Value Date Recorded Sex Assigned at Not on file Gender Identity Not on file Sexual Orientation Straight 06/14/2020 5: 27 PM EDT Job Start Date Occupation Industry Not on file Not on file Not on file documented as of this encounter Plan of Treatment Pending Results Name Type Priority Associated Diagnoses Date /Time URINALYSIS, REFLEX TO MICROSCOPIC Lab Routine Fever, unspecified fever cause Feeling sick 08/14/2024 12:00 PM EDT CULTURE, URINE, QUANTITATIVE Lab Routine Fever, unspecified fever cause Feeling sick 08/14/2024 12:00 PM EDT CBC WITH WBC DIFFERENTIAL Lab Routine Fever, unspecified fever cause Feeling sick 08/14/2024 12:00 PM EDT COMPREHENSIVE METABOLIC PANEL Lab Routine Fever, unspecified fever cause Feeling sick 08/14/2024 12:00 PM EDT CRP (INFLAMMATORY MARKER) Lab Routine Fever, unspecified fever cause Feeling sick 08/14/2024 12:00 PM EDT CBC Lab Routine Fever, unspecified fever cause Feeling sick 08/14/2024 12:00 PM EDT DIFFERENTIAL, AUTOMATED Lab Routine Fever, unspecified fever cause Feeling sick 08/14/2024 12:00 PM EDT Health Maintenance Due Date Last Done Comments Depression Monitoring 06/19/2020 06/19/2019 COVID-19 Vaccine ( season) 2024 04/01/2021, 03/01/2021 Influenza Vaccine (FLU shot) (#1) 2024 09/01/2019, 09/13/2018, 11/19/2014, Additional history exists Diabetes Screening 11/14/2025 11/14/2022, 1 , 08/30/2021, Additional history exists Pap Smear 10/19/2026 10/19/2023, 03/01/2017, 01/05/2017, Additional history exists DTap/Tdap Vaccines (8 - Td or Tdap) 09/13/2028 09/13/2018, 07/12/2010, 09/22/2003, Additional history exists Cervical Cancer Screening 10/19/2028 HPV/Co-Test 10/19/2028 10/19/2023 Hepatitis B Vaccine Completed 03/06/2001, 12/22/1999, 07/01/1999 Pneumococcal Vaccine: Pediatrics (0 to 5 Years) and At-Risk Patients (6 to 64 Years) Completed 10/19/2023, 07/20/2010 HPV (Gardasil) Vaccine Aged Out No lo nger eligible based on patient's age to complete this topic MENINGOCOCCAL (MENACTRA/MENVEO) Aged Out No longer eligible based on patient's age to complete this topic documented as of this encounter Medical Devices Not on filedocumented as of this encounter Visit Diagnoses Diagnosis Fever, unspecified fever cause Feeling sick Other unknown and unspecified cause of morbidity or mortality documented in this encounter Care Teams Party Plan Sales Unit Sales Leader Relationship Specialty Start Date End Date Charanjit Ortiz MD [address] [place] [address] PCP - General 03/26/02 documented as of this encounter
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
--- OUTSIDE RECORDS SUMMARY | 2024-08-15 23:16 | External Medical Summary ---
Author Name Unknown Address Unknown Organization K01:LABORATORY [facility] - [address] [facility] [address] Laboratory Report Ordering Provider Test Date Status LIAT STOLL 08/14/2024 12:00:07 Final Observation Date Value Abnormality Reference (Units ) Status Color of Urine by Auto 08/14/2024 12:00:07 Yellow Colorless, Light Yellow, Yellow, Dark Yellow Final Clarity, Urine 08/14/2024 12:00:07 Cloudy Abnormal Clear Final Glucose [Mass/volume] in Urine by Automated test strip 08/14/2024 12:00:07 50 Abnormal Negative (mg/dL) Final Bilirubin.total [Presence] in Urine by Automated test strip 08/14/2024 12:00:07 Negative Negative Final Ketones [Mass/volume] in Urine by Automated test strip 08/14/2024 12:00:07 Trace Abnormal Negative (mg/dL) Final Specific gravity, Urine 08/14/2024 12:00:07 1.019 1.003-1.030 Final Hemoglobin [Presence] in Urine by Automated test strip 08/14/2024 12:00:07 Moderate Abnormal Negative Final pH, Urine 08/14/2024 12:00:07 6.0 5.0-7.5 (Units) Final Protein [Mass/volume] in Urine by Automated test strip 08/14/2024 12:00:07 100 Abnormal Negative (mg/dL) Final Urobilinogen [Mass/volume] in Urine by Automated test strip 08/14/2024 12:00:07 4.0 Abnormal Normal (mg/dL) Final Nitrite [Presence] in Urine by Automated test strip 08/14/2024 12:00:07 Positive Abnormal Negative Final Leukocyte esterase [Presence] in Urine by Automated test strip 08/14/2024 12:00:07 Large Abnormal Negative Final RBC, Urine 08/14/2024 12:00:07 10-19 Abnormal 0-2 (/HPF) Final WBC, Urine 08/14/2024 12:00:07 50+ Abnormal 0-2 (/HPF) Final Bacteria [#/area] in Urine sediment by Microscopy high power field 08/14/2024 12:00:07 >200 Abnormal 0-25 (/HPF) Final Calcium oxalate crystals [#/area] in Urine sediment by Microscopy high power field 08/14/2024 12:00:07 1-4 Abnormal None (/HPF) Final Leukocyte clumps [#/area] in Urine sediment by Microscopy high power field 08/14/2024 12:00:07 Present Abnormal None (/HPF) Final Performing Location LABORATORY [facility] - [facility] [address] [facility] [address]
--- OUTSIDE RECORDS SUMMARY | 2024-08-15 23:17 | External Medical Summary | Summary of Care ---
Author Name Unknown Organization [facility] Address [address] [place] [address] Phone [phone] Care Team Providers Care Program Director Substance Abuse Name Role Phone Charanjit Ortiz MD Primary Care Provider +1- [phone] Reason for Visit * Reason Comments Outpatient Testing Encounter Details Date Type Department Care Team (Late st Contact Info) Description 02/29/2024 1:20 PM EDT Laboratory Laboratory, [place] [address] [place] [address] [place], [facility] [address] [place] [address] Screening examination for STI Allergies Active Allergy Reactions Criticality Noted Date Comments Sulfa Antibiotics 01/03/2001 Rash documented as of this encounter (statuses as of 02/29/2024) Medications Medication Sig Dispensed Refills Start Date End Date Status sertraline (ZOLOFT) 100 MG TabletIndications:2 tabs daily Take 1 Tablet by mouth in the morning. 0 11/12/2015 Active DULoxetine (DULOXETINE) 20 MG CPEP Take 1 Cap by mouth daily. Do not cut, crush or chew 30 Cap 1 02/13/2020 Active clonazePAM 1 MG Oral Tablet (KlonoPIN) take 1 tablet by mouth three times a day 90 Tab 0 2020 Active Amphetamine-Dextroamp het ER 25 MG Oral Capsule Extended Release 24 Hour (Adderall XR) Take 1 Capsule by mouth in the morning. Every morning.. 0 08/04/2021 Active Vitamin D (Ergocalciferol) 1.25 MG (42752 UT) Oral Capsule Take 1 Capsule by mouth once a week. 0 02/15/2022 Active Folic Acid 1 MG Oral Tablet Take 1 Tablet by mouth in the morning and 1 Tablet before bedtime. 0 03/02/2022 Active Albuterol Sulfate HFA 108 (90 Base) MCG/ACT Inhalation Aerosol SolutionIndications:B ronchitis, complicated,Sinobronc hitis inhale 2 puffs by mouth four times a day if needed wheezing May substitute proventil or proair based on formulary 18 g 1 10/24/2022 Active Fluticasone Propionate 50 MCG/ACT Nasal SuspensionIndications :Acute sinusitis, recurrence not specified, unspecified location,Sinobronchit is Administer 2 Sprays into each nostril in the morning. 1 Each 1 10/24/2022 Active DULoxetine HCl 60 MG Oral Capsule Delayed Release Particles (Cymbalta) 0 06/18/2023 Active Amphetamine-Dextroamp het ER 20 MG Oral Capsule Extended Release 24 Hour 0 08/14/2023 Active documented as of this encounter (statuses as of 02/29/2024) Active Problems Problem Noted Date Diagnosed Date [...] as of this encounter (statuses as of 02/29/2024) Resolved Problems Problem Noted Date Diagnosed Date [...] as of this encounter (statuses as of 02/29/2024) Immunizations Name Administration Dates Next Due COVID-19 mRNA, LNP-s, No Pre serve, 2-Dose Series (Moderna) 04/01/2021,03/01/2021 PPD 07/18/2019 Pneumococcal Conjugate Vacci ne, 20-valent ([id number]) 10/19/2023 Pneumococcal Polysaccharide PPV23 (Pneumovax) 07/20/2010 Seasonal Influenza, PF, 6 M & above, IM , (FluLaval or Fluzone) 09/01/2019,09/13/2018 Seasonal Influenza, Split, I IV3, With Preserve, Inj 11/19/2014,09/25/2012,10/23/2011,08/13 TDAP (age 10 and older)(Boostrix) 09/13/2018 TDAP (age 11 and older)(Adacel) 07/12/2010 documented as of this encounter Social [...] in the Last Year Never true 12/02/2019 Sex and Gender Information Value Date Recorded Sex Assigned at Not on file Gender Identity Not on file Sexual Orientation Straight 06/14/2020 5: 27 PM EDT Job Start Date Occupation Industry Not on file Not on file Not on file documented as of this encounter Plan of Treatment Upcoming Encounters Date Type Department Care Team (Late st Contact Info) Description 03/03/2024 2:40 PM EDT Office Visit [facility] [address] [place] [address] Ashlee Cruz PA-C [address], [place] [id number] Pending Results Name Type Priority Associated Diagnoses Date /Time HIV ANTIGEN & ANTIBODY SCREEN W/ CONFIRMATION Lab Routine Screening examination for STI 02/29/2024 1:10 PM EDT HEPATITIS C ANTIBODY SCREEN WITH PROGRESSION TO HEPATITIS C RNA QUANTITATIVE Lab Routine Screening examination for STI 02/29/2024 1:10 PM EDT HEPATITIS C ANTIBODY Lab Routine Screening examination for STI 02/29/2024 1:10 PM EDT HEPATITIS C RNA ADD ON Lab Routine Screening examination for STI 02/29/2024 1:10 PM EDT CHLAMYDIA TRACHOMATIS AND NEISSERIA GONORRHOEAE, AMPLIFIED PROBE Lab Routine Screening examination for STI 02/29/2024 1:11 PM EDT Health Maintenance Due Date Last Done Comments COVID-19 Vaccine ( season) 2023 04/01/2021, 03/01/2021 Influenza Vaccine (FLU shot) (Season Ended) 2024 09/01/2019, 09/13/2018, 11/19/2014, Additional history exists Diabetes Screening 11/14/2025 11/14/2022, 1 , 08/30/2021, Additional history exists Pap Smear 10/19/2026 10/19/2023, 0301/2017, 01/05/2017, Additional history exists DTaP,Tdap,and Td Vaccines (8 - Td or Tdap) 09/13/2028 09/13/2018, 07/12/2010, 09/22/2003, Additional history exists Cervical Cancer Screening 10/19/2028 HPV/Co-Test 10/19/2028 10/19/2023 Hepatitis B Completed 03/06/2001, 12/06, 07/01/1999 Pneumococcal Vaccine: Pediatrics (0 to 5 Years) and At-Risk Patients (6 to 64 Years) Completed 10/19/2023, 07/20/2010 GARDASIL-HPV IMMUNIZATION SERIES Aged Out No longer eligible based on patient's age to complete this topic MENINGOCOCCAL (MENACTRA/MENVEO) Aged Out No longer eligible based on patient's age to complete this topic documented as of this encounter Medical Devices Not on filedocumented as of this encounter Visit Diagnoses Diagnosis Screening examination for STI documented in this encounter Care Teams Program Director Substance Abuse Relationship Specialty Start Date End Date Charanjit Ortiz MD [address] [place] [address] PCP - General 03/26/02 documented as of this encounter
--- OUTSIDE RECORDS SUMMARY | 2024-08-15 23:17 | External Medical Summary | Summary of Care ---
Author Name Unknown Organization [facility] Address [address] [facility] [place] [address] Phone [phone] Care Team Providers Care Die Fitter Name Role Phone Charanjit Ortiz MD Primary Care Provider +1- [phone] Reason for Visit * Reason Comments Acute congestion Encounter Details Date Type Department Care Team (Late st Contact Info) Description 07/28/2024 4:20 PM EDT Telemedicine [facility] [address] [place] [address] Tori Farris MD [address] [place] [address] Acute cough*; Acute frontal sinusitis, recurrence not specified Allergies Active Allergy Reactions Criticality Noted Date Comments Sulfa Antibiotics 01/03/2001 Rash documented as of this encounter (statuses as of 07/28/2024) Medications Medication Sig Dispensed Refills Start Date [...] times a day 90 Tab 2020 Active Amphetamine-Dextroa mphet ER 25 MG Oral Capsule Extended Release 24 Hour (Adderall XR) Take 1 Capsule by mouth in the morning. Every morning.. 08/04/2021 Active Vitamin D (Ergocalciferol) 1.25 MG (60519 UT) Oral Capsule Take 1 Capsule by mouth once a week. 02/15/2022 Active Folic Acid 1 MG Oral Tablet Take 1 Tablet by mouth in the morning and 1 Tablet before bedtime. 03/02/2022 Active Albuterol Sulfate HFA 108 (90 Base) MCG/ACT Inhalation Aerosol SolutionIndications :Bronchitis, complicated,Sinobro nchitis inhale 2 puffs by mouth four times a day if needed wheezing May substitute proventil or proair based on formulary 18 g 1 10/24/2022 Active Fluticasone Propionate 50 MCG/ACT Nasal SuspensionIndicatio ns:Acute sinusitis, recurrence not specified, unspecified location,Sinobronch itis Administer 2 Sprays into each nostril in the morning. 1 Each 1 10/24/2022 Active DULoxetine HCl 60 MG Oral Capsule Delayed Release Particles (Cymbalta) 06/18/2023 Active Amphetamine-Dextroa mphet ER 20 MG Oral Capsule Extended Release 24 Hour 08/14/2023 Active Amoxicillin 875 MG Oral TabletIndications:A cute cough,Acute frontal sinusitis, recurrence not specified Take 1 Tablet by mouth in the morning and 1 Tablet before bedtime. Do all this for 10 days. 20 Tablet 07/28/2024 08/07/2024 Active Fluconazole 150 MG Oral Tablet (Diflucan) Take 1 tab. If in 72 hours from first dose symptoms are not resolved, please take second tab. 2 Tablet 07/28/2024 Active documented as of this encounter (statuses as of 07/28/2024) Active Problems Problem Noted Date Diagnosed Date [...] as of this encounter (statuses as of 07/28/2024) Resolved Problems Problem Noted Date Diagnosed Date [...] cardiac (SCD) 2 04/13/2017 Overview: Father, 43. M consult. Paternity testing 10/23/2012 11/28/2012 Overview: Desired [...] as of this encounter (statuses as of 07/28/2024) Immunizations Name Administration Dates Next Due COVID-19 mRNA, LNP-s, No Pre serve, 2-Dose Series (Moderna) 04/01/2021,03/01/2021 PPD 07/18/2019 Pneumococcal Conjugate Vacci ne, 20-valent ([id number]) 10/19/2023 Pneumococcal Polysaccharide PPV23 (Pneumovax) 07/20/2010 Seasonal Influenza, PF, 6 M & above, IM , (FluLaval or Fluzone) 09/01/2019,09/13/2018 Seasonal Influenza, Trivalen t, (IIV3), with Preserv, (Fluzone) 11/19/2014,09/25/2012,10/23/2011,08/13 TDAP (age 10 and older)(Boostrix) 09/13/2018 TDAP, [...] as of this encounter Progress Notes * Tori Farris MD - 07/28/2024 4:29 PM EDT ASSESSMENT / PLAN: Makeda Vanessa is a 38 year old female Acute cough (Primary) - Amoxicillin 875 MG Oral Tablet; Take 1 Tablet by mouth in the morning and 1 Tablet before bedtime. Do all this for 10 days. Acute frontal sinusitis, recurrence not specified - Amoxicillin 875 MG Oral Tablet; Take 1 Tablet by mouth in the morning and 1 Tablet before bedtime. Do all this for 10 days. Other orders - Fluconazole 150 MG Oral Tablet (Diflucan); Take 1 tab. If in 72 hours from first dose symptoms are not resolved, please take second tab. A/P: This is day 14 of illness and not improving - reviewed supportive care like steroid containing nasal sprays vs saline spray, antihistamine, and pushing fluids. Discussed risks and benefits of proceeding with antibiotic at this time. Patient elects to proceed.Script sent and instructed on use. no note requested. Subjective: Makeda Vanessa is a 38 year old female. Chief Complaint Patient presents with Acute congestion Patient location: HOME. I was in a hospital or clinic location. After connecting through [employer], patient was verified with two unique identifiers. Patient (or authorized legal customer retention representative) wasthen informed that this was a Telemedicine visit and being conducted confidentially over secure lines. Methods to assure confidentiality were taken. Patient acknowledged consent and understanding of privacy and security of the Telemedicine visit. The patient agreed to participate. Scheduling Notes: congestion Arrival Time: 4:09 PM HPI: This is day 14 of illness - endorses hoarseness, pressure in lymph nodes / pressures, coughing, dizziness , feverish. Covid is negative. Kids are sick too. Has tried electrolytes, advil cold and sinus Sick contacts? yes Missed days of work / needs doctor's note? 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 Do all this for 10 days. 20 Tablet 0 Fluconazole 150 MG Oral Tablet (Diflucan) Take 1 tab. If in 72 hours from first dose symptoms are not resolved, please take second tab. 2 Tablet 0 sertraline (ZOLOFT) 100 MG Tablet Take 1 [...] Every morning.. Vitamin D (Ergocalciferol) 1.25 MG (68420 UT) Oral Capsule Take 1 Capsule by mouth once a week. Folic Acid 1 MG Oral Tablet Take 1 Tablet by mouth in the morning and 1 Tablet before bedtime. Albuterol Sulfate HFA 108 (90 Base) MCG/ACT Inhalation Aerosol Solution inhale 2 puffs by mouth four times a day if needed wheezing May substitute proventil or proair based on formulary 18 g 1 Fluticasone Propionate 50 MCG/ACT Nasal Suspension Administer 2 Sprays into each nostril in the morning. 1 Each 1 DULoxetine HCl 60 MG Oral Capsule Delayed Release Particles (Cymbalta) Amphetamine-Dextroamphet ER 20 MG Oral Capsule Extended Release 24 Hour (Patient not taking: Reported on 01/23/2024) No current facility-administered medications for this visit. Objective: General: No acute distress. Neuro: Alert Pleasant & interactive. Respiratory: Good inspiratory effort, no labored breathing. HEENT: Conjunctivae appear clear. No swelling noted face or lips. Skin: No rash visible on exposed skin areas, normal coloration & appears dry. Psych: Normal affect. Fluent speech. Tori Farris MD [address] [address] documented in this encounter Nursing Notes * Lynette Ayala LPN - 07/28/2024 4:16 PM EDT The patient has been properly identified by confirmation of name and date of . Chief Complaint Patient presents with Acute congestion documented in this encounter Plan of Treatment Health Maintenance Due Date Last Done Comments [...] as of this encounter Visit Diagnoses Diagnosis Acute cough- Primary Acute frontal sinusitis, recurrence not specified documented in this encounter Care Teams Die Fitter Relationship Specialty Start Date End Date Charanjit Ortiz MD [address] [place] [address] PCP - General 03/26/02 documented as of this encounter
--- OUTSIDE RECORDS SUMMARY | 2024-08-15 23:17 | External Medical Summary ---
Author Name Unknown Address Unknown Organization K01:LABORATORY [facility] - [address] [place] [address] Ave. [facility] [address] Laboratory Report Ordering Provider Test Date Status JUDD STEVENSON 02/29/2024 12:55:35 Final Observation Date Value Abnormality Reference (Units ) Status Herpes simplex virus 1+2 DNA [Presence] in Specimen by FLORENCE with probe detection 02/29/2024 12:55:35 Negative Negative Final No Herpes Simplex Virus Type 1 detected by PCR (amplified probe). Herpes simplex virus 1+2 DNA [Presence] in Specimen by FLORENCE with probe detection 02/29/2024 12:55:35 Negative Negative Final No Herpes Simplex Virus Type 2 detected by PCR (amplified probe). Varicella zoster virus DNA [Presence] in Specimen by FLORENCE with probe detection 02/29/2024 12:55:35 Negative. No Varicella Zoster Virus detected by PCR (amplified Probe). Negative Final This test was developed and its performance characteristics determined by [facility]. It has not been cleared or approved by the FDA. The laboratory is regulated under CLIA as qualified to perform high- complexity testing. This test is used for clinical purposes. It should not be regarded as investigational or for research. Performing Location LABORATORY [address] [facility] [address]
--- OUTSIDE RECORDS SUMMARY | 2024-08-15 23:17 | External Medical Summary | Summary of Care ---
Author Name Unknown Organization [facility] Address [address] [place] [address] Phone [phone] Care Team Providers Care Wet End Operator Name Role Phone Charanjit Ortiz MD Primary Care Provider +1- [phone] Reason for Visit * Reason Onset Date Comments Advice 02/29/2024 Patient asking t o speak to nurse shahana Encounter Details Date Type Department Care Team (Late st Contact Info) Description 02/29/2024 Telephone [facility] [address] [place] [address] Charanjit Ortiz MD [address] [place] [address] Advice (Patient asking to speak to nurse a... Allergies Active Allergy Reactions Criticality Noted Date [...] 08/04/2021 Active Vitamin D (Ergocalciferol) 1.25 MG (21628 UT) Oral Capsule Take 1 Capsule by [...] PPD 07/18/2019 Pneumococcal Conjugate Vacci ne, 20-valent ([id number]) 10/19/2023 Pneumococcal Polysaccharide PPV23 (Pneumovax) 07/20/2010 Seasonal [...] on file documented as of this encounter Miscellaneous Notes * Telephone Encounter - Nathaly Bermudez OSA - 02/29/2024 9:55 AM EDT Scheduled. 02/29/2024 * Telephone Encounter - Ashlee Cruz PA-C - 02/29/2024 9:19 AM EDT Orders in Needs lab visit and nv as the lab cannot swab her Screening examination for STI (Primary) - HIV ANTIGEN & ANTIBODY SCREEN W/ CONFIRMATION; Future; Expected date: 02/29/2024 - HEPATITIS C ANTIBODY SCREEN WITH PROGRESSION TO HEPATITIS C RNA QUANTITATIVE; Future; Expected date: 02/29/2024 - CHLAMYDIA TRACHOMATIS AND NEISSERIA GONORRHOEAE, AMPLIFIED PROBE; Future; Expected date: 02/29/2024 - HERPES SIMPLEX 1/2 AND VARICELLA ZOSTER, PCR; Future; Expected date: 02/29/2024 Oral lesion - HERPES SIMPLEX 1/2 AND VARICELLA ZOSTER, PCR; Future; Expected date: 02/29/2024 Ashlee Cruz PA-C 02/29/2024 9:19 AM * Telephone Encounter - Lynette Ayala LPN - 02/29/2024 9:05 AM EDT Please advise below. * Telephone Encounter - Margret Thomas OSA - 02/29/2024 7:51 AM EDT Patient calling to speak to Ashlee LIRIANO , patients boyfriend has cheated on her and now she has blisters on both sides of her mouth , she stated these are oozing ,painful . She suspects she was given herpes , she is having aches and is urinating a lot and having discharge she is not sure if this is UTI or STD. Patient thinks she has STD and is asking for a STD panel and if she needs to come in she can . Please contact patient at [phone] , patient is very upset and is scared . Patients son now has blisters on his mouth as well documented in this encounter Plan of Treatment Upcoming Encounters Date Type Department Care Team (Late st Contact Info) Description 02/29/2024 1:00 PM EDT Nurse Only Ancillary Department, [place] [address] [place] [address] Gam[facility] Nurse [address] [place] [facility] [address] 02/29/2024 1:20 PM EDT Laboratory [facility] [place] [address] [facility] [id number] [place], Laboratory [address] [place] [address] 03/03/2024 2:40 PM EDT Office Visit [facility], [place] [address] [place] [address] Ashlee Cruz PA-C [address] [place] [address] Scheduled Orders Name Type Priority Associated Diagnoses Orde r Schedule HIV ANTIGEN & ANTIBODY SCREEN W/ CONFIRMATION Lab Routine Screening examination for STI Expected: 02/29/2024 (Approximate), Expires: 02/28/2025 HEPATITIS C ANTIBODY SCREEN WITH PROGRESSION TO HEPATITIS C RNA QUANTITATIVE Lab Routine Screening examination for STI Expected: 02/29/2024 (Approximate), Expires: 02/28/2025 CHLAMYDIA TRACHOMATIS AND NEISSERIA GONORRHOEAE, AMPLIFIED PROBE Lab Routine Screening examination for STI Expected: 02/29/2024, Expires: 02/28/2025 HERPES SIMPLEX 1/2 AND VARICELLA ZOSTER, PCR Lab Routine Screening examination for STI Oral lesion Expected: 02/29/2024, Expires: 02/28/2025 Health Maintenance Due Date Last Done Comments COVID-19 Vaccine ( season) 2023 04/01/2021, 03/01/2021 Influenza Vaccine (FLU shot) (Season Ended) 2024 09/01/2019, 09/13/2018, 11/19/2014, Additional history exists Diabetes Screening 11/14/2025 11/14/2022, 1 , 08/30/2021, Additional history exists Pap Smear 10/19/2026 10/19/2023, 03/01/2017, 01/05/2017, Additional history exists DTaP,Tdap,and Td Vaccines [...] encounter Visit Diagnoses Diagnosis Screening examination for STI- Primary Oral lesion Other and unspecified diseases of the oral soft tissues documented in this encounter Care Teams Wet End Operator Relationship Specialty Start Date End Date Charanjit Ortiz MD [address] [place] [address] PCP - General 03/26/02 documented as of this encounter
--- OUTSIDE RECORDS SUMMARY | 2024-08-15 23:17 | External Medical Summary | Summary of Care ---
Author Name Unknown Organization [facility] Address [address] [place] [facility] [place] [place] [address] Phone [phone] Care Team Providers Care Milieu Therapist Name Role Phone Charanjit Ortiz MD Primary Care Provider +1- [phone] Encounter Details Date Type Department Care Team (Late st Contact Info) Description 02/29/2024 1:00 PM EDT Nurse Only Ancillary Department, [place] [address] [place], [place] [phone] [place], Nurse [address] [place] [address] Arrived Allergies Active Allergy Reactions Criticality Noted Date [...] 08/04/2021 Active Vitamin D (Ergocalciferol) 1.25 MG (60566 UT) Oral Capsule Take 1 Capsule by [...] No Pre serve, 2-Dose Series (Moderna) 04/01/2021,03/01/2021 DTWP - Dipth/Tet/Whole Cell Pertussis ,10/23/1989,05/26/1988,0 02/1988,1987 Hepatitis B Vaccine 07/01/1999 Hepatitis B, 0-19 yrs 03/06/2001,12/22/1999 MMR - Measles/Mumps/Rubella Vaccine 07/21/1993,1 OPV - Polio Virus Vaccine (Oral) 05/26/1988,050 02/1988,1987 PPD 07/18/2019 Pneumococcal Conjugate Vacci ne, 20-valent ([id number]) 10/19/2023 Pneumococcal Polysaccharide PPV23 (Pneumovax) 07/20/2010 Seasonal Influenza, PF, 6 M & above, IM , (FluLaval or Fluzone) 09/01/2019,09/13/2018 Seasonal Influenza, Split, I IV3, With Preserve, Inj 11/19/2014,09/25/2012,10/23/2011,07/2008 TD - Tetanus/Diptheria (ADULT) 09/22/2003 1 11/22/2012 TDAP (age 10 and older)(Boostrix) 09/13/2018 TDAP [...] as of this encounter Progress Notes * Lynette Ayala LPN - 02/29/2024 12:43 PM EDT Has a lesion on the corners of her mouth, showed up on the 18th Is having some urinary issues Is having the pressure and pain and feeling like she has to urinate and has taken a urinary supplement. documented in this encounter Plan of Treatment Upcoming Encounters Date Type Department Care Team (Late st Contact Info) Description 02/29/2024 1:20 PM EDT Laboratory Laboratory, [address] [place] [address] [place], [facility] [address] [place] [facility] [address] Arrived 03/03/2024 2:40 PM EDT Office Visit [facility], [place] [address] [place] [facility] [place] [id number] sAhlee Cruz PA-C [address] [place] [address] Health Maintenance Due Date Last Done Comments [...] Visit Diagnoses Diagnosis Screening examination for STI Oral lesion Other and unspecified diseases of the oral soft tissues documented in this encounter Care Teams Milieu Therapist Relationship Specialty Start Date End Date Charanjit Ortiz MD [address] [place] [address] PCP - General 03/26/02 documented as of this encounter
--- OUTSIDE RECORDS SUMMARY | 2024-08-15 23:17 | External Medical Summary ---
Author Name Unknown Address Unknown Organization [id number]:[facility] [place] [facility] [place] [address] Laboratory Report Ordering Provider Test Date Status JUDD STEVENSON 02/29/2024 13:11:34 Final Observation Date Value Abnormality Reference (Units ) Status Chlamydia trachomatis rRNA [Presence] in Specimen by FLORENCE with probe detection 02/29/2024 13:11:34 Negative Negative Final No Chlamydia trachomatis det ected by student finance advisor-mediated nucleic acid amplification. Neisseria gonorrhoeae rRNA [ Presence] in Specimen by FLORENCE with probe detection 02/29/2024 13:11:34 Negative Negative Final No Neisseria gonorrhoeae det ected by student finance advisor-mediated nucleic acid amplification. Performing Location [facility] [place] [address] [place] [address]
--- OUTSIDE RECORDS SUMMARY | 2024-08-15 23:17 | External Medical Summary | Summary of Care ---
Author Name Unknown Organization [facility] Address [address] [facility] [address] Phone [phone] Care Team Providers Care Block Cableman Name Role Phone Charanjit Ortiz MD Primary Care Provider [phone]- [phone] Encounter Details Date Type Department Care Team (Late st Contact Info) Description 02/29/2024 1:00 PM EDT Nurse Only Ancillary Department, [place] [address], [place] [id number] [place], Nurse [address] [place] [address] Arrived Allergies Active Allergy Reactions Criticality Noted [...] 08/04/2021 Active Vitamin D (Ergocalciferol) 1.25 MG (13350 UT) Oral Capsule Take 1 Capsule by [...] PPD 07/18/2019 Pneumococcal Conjugate Vacci ne, 20-valent ([id number]) 10/19/2023 Pneumococcal Polysaccharide PPV23 (Pneumovax) 07/20/2010 Seasonal [...] Description 02/29/2024 1:20 PM EDT Laboratory Laboratory, [address] [place] [address] [place], [facility] [address] [place] [facility] [place] [address] Arrived 03/03/2024 2:40 PM EDT Office Visit [facility], [place] [address] [place] [facility] [place] [id number] Ashlee Cruz PA-C [address] [place] [address] Health Maintenance Due Date Last Done Comments [...] tissues documented in this encounter Care Teams Block Cableman Relationship Specialty Start Date End Date Charanjit Ortiz MD [address] [place] [address] PCP - General 03/26/02 documented as of this encounter
--- OUTSIDE RECORDS SUMMARY | 2024-08-15 23:17 | External Medical Summary | Summary of Care ---
Author Name Unknown Organization [facility] Address [address] [facility] [place] [address] Phone [phone] Care Team Providers Care Sweep Press Operator Name Role Phone Charanjit Ortiz MD Primary Care Provider [phone]- [phone] Reason for Visit * Reason Onset Date Comments Advice 02/29/2024 order Encounter Details Date Type Department Care Team (Late st Contact Info) Description 02/29/2024 Telephone [facility] [address] [facility] [address] Charanjit Ortiz MD [address] [place] [address] Advice (order) Allergies Active Allergy Reactions Criticality Noted Date Comments Sulfa Antibiotics 01/03/2001 Rash documented as of this encounter (statuses as of 05/30/2024) Medications Medication Sig Dispensed Refills Start Date [...] times a day 90 Tab 2020 Active Amphetamine-Dextroamp het ER 25 MG Oral Capsule Extended Release 24 Hour (Adderall XR) Take 1 Capsule by mouth in the morning. Every morning.. 08/04/2021 Active Vitamin D (Ergocalciferol) 1.25 MG (95004 UT) Oral Capsule Take 1 Capsule by [...] Capsule Delayed Release Particles (Cymbalta) 06/18/2023 Active Amphetamine-Dextroamp het ER 20 MG Oral Capsule Extended Release 24 Hour 08/14/2023 Active documented as of this encounter (statuses as of 05/30/2024) Active Problems Problem Noted Date Diagnosed Date [...] as of this encounter (statuses as of 05/30/2024) Resolved Problems Problem Noted Date Diagnosed Date [...] as of this encounter (statuses as of 05/30/2024) Immunizations Name Administration Dates Next Due COVID-19 mRNA, LNP-s, No Pre serve, 2-Dose Series (Moderna) 04/01/2021,03/01/2021 PPD 07/18/2019 Pneumococcal Conjugate Vacci ne, 20-valent ([id number]) 10/19/2023 Pneumococcal Polysaccharide PPV23 (Pneumovax) 07/20/2010 Seasonal [...] encounter Miscellaneous Notes * Telephone Encounter - Lynette Ayala LPN - 02/29/2024 9:06 AM EDT 2 encounters for the same concern. Message was forwarded to provider. * Telephone Encounter - Margret Thomas OSA - 02/29/2024 7:48 AM EDT An order was requested for this patient. Name of Requesting Provider:Aura Vanessa Order Requested: STD panel Diagnosis/Reason for Request: patients boyfriend advised her that he was with someone else If order request is for Mammogram: Is the patient having any breast symptoms? N/A Is there a chance of ? N/A Has the patient had any breast problems in the past? NA What location AND department does the patient wish to have their order completed at? Fax Number, if applicable: If the caller is not a current patient, please advise the patient to call their current PCP to havethe order's prior to being seen in our office. The patient was informed that our providers would not order anything (medication, labs, etc.) prior to being seen. documented in this encounter Plan of Treatment Health Maintenance Due Date Last Done Comments Depression Monitoring 06/19/2020 06/19/2019 COVID-19 Vaccine ( season) 2023 04/01/2021, 03/01/2021 Influenza Vaccine (FLU shot) (#1) 2024 09/01/2019, 09/13/2018, 11/19/2014, Additional history exists Diabetes Screening 11/14/2025 11/14/2022, 1 , 08/30/2021, Additional history exists Pap Smear 10/19/2026 10/19/2023, 01/2017, 01/05/2017, Additional history exists DTaP,Tdap,and Td Vaccines [...] Not on filedocumented as of this encounter Care Teams Sweep Press Operator Relationship Specialty Start Date End Date Charanjit Ortiz MD [address] [place] [facility] [place] [address] PCP - General 03/26/02 documented as of this encounter
--- OUTSIDE RECORDS SUMMARY | 2024-08-15 23:17 | External Medical Summary | Summary of Care ---
Author Name Unknown Organization [facility] Address [address] [place] [address] Phone [phone] Care Team Providers Care Sand Temperer Name Role Phone Charanjit Ortiz MD Primary Care Provider +1- [phone] Reason for Visit * Reason Comments Outpatient Testing Encounter Details Date Type Department Care Team (Late st Contact Info) Description 02/29/2024 1:20 PM EDT Laboratory Laboratory, [place] [address] [place] [address] [place], Laboratory [address] [place] [address] Screening examination for STI Allergies [...] 08/04/2021 Active Vitamin D (Ergocalciferol) 1.25 MG (59592 UT) Oral Capsule Take 1 Capsule by [...] PPD 07/18/2019 Pneumococcal Conjugate Vacci ne, 20-valent ([id number]) 10/19/2023 Pneumococcal Polysaccharide PPV23 (Pneumovax) 07/20/2010 Seasonal [...] Description 03/03/2024 2:40 PM EDT Office Visit [facility] [address] [place] [address] Ashlee Cruz PA-C [address] [place], [place] [phone] Pending Results Name Type Priority Associated Diagnoses [...] STI documented in this encounter Care Teams Sand Temperer Relationship Specialty Start Date End Date Charanjit Ortiz MD [address] [place] [address] PCP - General 03/26/02 documented as of this encounter
[2024-08-16] MEDS ORDERED: CIPROFLOXACIN / D5W 400 MG/200 ML BAG IV SCH
--- NOTE | 2024-08-18 11:40 | Discharge Summary ---
Date of Service August 15, 2024 Admission HPI Per Admitting Provider This is a 38-year-old female with PMHx of migraine, mood disorder, anxiety, recently battling acute sinusitis since prior to 07/28 where she initially saw her PCP. At that point in time symptoms had been going on for 14 days. She was given antibiotics of amoxicillin 875 mg x 10 days and 1 dose of fluconazole 150 mg tablet to prevent vaginal yeast infection. Since that time she week return to her PCP office on 08/14 with complaints of persistent cough as well as dysuria. She reports that today she felt overall well, but was told to come to the hospital due to low potassium of 2.6. Pt completed antibiotic 4 days ago. She does admit to having right flank pain intermittently, and has a right ovarian cyst which is known about. She had fever 102 F 48 hrs ago, and has been using tylenol and ibuprofen alternating intermittently, last taken this morning. Pt is having cough and mucous production x 5 days still. She has a child who is also sick with the same runny nose/mucous production. Patient is adamant that she does not want to be admitted. She states " I can just go buy bananas and eat some of those to increase my potassium" several times during our visit. It was strongly encouraged that she stay in hospital for admission due to lab studies and electrolyte replacement. Her fiance and cousin are present at bedside and are supportive of her staying. Pt also endorses severe anxiety of being alone and is asking if one of them can stay overnight with her. We discussed pt visiting hours and that it would be dependent on if she has a roommate during admission. Outpatient UA was obtained and appeared to be grossly infected with elevated urine WBC, esterase, bacteria 4+. Labs were drawn and due to low potassium she was referred to the ER for replacement. Here patient is found to have a WBC of 22.8, potassium 2.6, magnesium 1.6, and procalcitonin 1.86 Social Hx: vapes nicotine, smokes cigarettes 0.5-1 ppd, denies marijuana or illicit drug use. Admission Exam Per Admitting Provider GENERAL: Alert and oriented x3. NAD, on RA. HEENT: No pallor, no icterus. Pupils equal, round and reactive to light. Oral mucosa moist. NECK: No JVD, no neck masses. HEART: S1 and S2 heard. Regular rate and rhythm. tachy in 110s. No murmur, no gallop. RESPIRATORY SYSTEM: Normal AP diameter. No accessory muscle use. No wheezing, no crackles. ABDOMEN: Soft, bowel sounds present, nontender, no distention. CENTRAL NERVOUS SYSTEM: No facial droop. Speech is clear. Obeys simple commands. Moves extremities. EXTREMITIES: No edema, no erythema seen. No CVA angle tenderness. Principal Diagnosis Hypokalemia Discharge Exam Pt left AMA. Pt didn't stay for template reproduction technician for bedside counselling/eval. Discharge Data Allergies Allergy/AdvReac Type Severity Reaction Status Date / Time Sulfa (Sulfonamide Allergy Severe VOMITING Verified 11/12/18 06:19 Antibiotics) Consultations 08/15/24 12:43 ED Decision to Admit Stat Ordered Studies 08/15/24 12:56 CT Abd and Pelvis [CT abdomen pelvis wo/w con] Stat Hospital Course (1) Hypokalemia: (2) Hypomagnesemia: (3) UTI (urinary tract infection): (4) Leukocytosis: Pt was being managed for the following: UTI Leukocytosis Sepsis -Admit to telemetry -Heart rate noted to be 120 upon arrival, WBC 22K, Pro-Malcolm 1.84 suspected urinary source with diffusely infected appearing UA, urine culture is in process. - UA was obtained as outpatient on 08/14, cultures in process, no results at this time. -Blood culture x 1 -Check CT abdomen pelvis with/without contrast to rule out intra-abdominal abscess, evaluate ovarian cyst, rule out urological source such as pyelonephritis with recent 10-day course of antibiotic therapy -Status post 1 L NSS, continue 125 mL/h x 1 bag Enterovirus/rhinovirus upper respiratory infection -Treat with supportive therapy -Recent sick contact, child -Mucinex, flutter, Tessalon Perle, cough drops prn Hypokalemia Hypomagnesemia -Given 40 mEq p.o. potassium in the ER, give additional 40 mEq IV now, additional 40 mEq p.o. this evening -1 g mag IV Tobacco use Nicotine Dependence -Patient admits to vaping nicotine and smoking cigarettes, approximately 1 pack/day -Nicotine patch ordered -Cessation encouraged at bedside Mood disorder Anxiety - Following with Dr. Alexandria Chin as outpt psych: on clonazepam 1 mg TID, Adderall ER 30 mg BID, PDMP reviewed personally - Continue cymbalta 90 mg QAM - Zoloft 200 mg daily DVT ppx: teds, scds Lines: PIV x 1 FEN/GI: Regular diet CODE: Full code Addendum: Patient was explained during the admission process, the importance of management of electrolyte abnormalities and complicated UTI, if not managed appropriately, she runs the risk of worsening electrolyte abnormalities, sepsis, shock, arrhythmia and . Both pt's SO and pt voiced understanding. She agreed to stay after lengthy discussion with herself and her significant other at the bedside. Later in the night, patient left AMA before doc was able to evaluate the patient. Home Health Attestation I certify that this patient is under my care and that I, or a physicians executive staff assistant working with me, had a face to-face encounter that meets the home health [id number] encounter requirements with this patient. The encounter with the patient was in whole, or in part, for the following medical condition, which is the primary reason for home health care (list medical condition): I certify that, based on my findings, the following services are medically necessary home health services: My clinical findings support the need for the above services because: Further, I certify that my clinical findings support that this patient is homebound (i.e. absences from home require considerable and taxing effort and are for medical reasons or anglican services or infrequently or of short duration when for other reasons) because: Certification for Home Health Services: Based on the above findings, I certify that this patient is confined to the home and needs intermittent correction care, physical therapy and/or speech therapy or continues to need occupational therapy. The patient is under my care, and I have initiated the establishment of the plan of care. This patient will be followed by a physician who will periodically review the plan of care. Total Time Total Time Spent Total Time Spent (In Minutes): 15 Discharge Plan Discharge Items Patient Disposition: Against Medical Advice Reason For Visit: UTI Activity: As commented below Activity Comment: followup with pcp Non-emergency contact: Primary Care Provider Follow-up/Referrals: Charanjit Ortiz MD [Primary Care Provider] - Pending Studies at Discharge: Yes Stand-Alone Forms: My [place], Smoking Cessation Medications and DC Order Prescriptions: Continued docusate sodium 100 mg Capsule 100 mg PO BID Qty: 60 0RF ferrous sulfate 325 mg (65 mg iron) Tablet,Delayed Release (Dr/Ec) 325 mg PO QAM Qty: 30 0RF sertraline [Zoloft] 100 mg Tablet 2 tabs PO DAILY clonazepam [Klonopin] 1 mg Tablet 1 mg PO TID albuterol sulfate 90 mcg/actuation Hfa Aerosol Inhaler 1 inh INHALATION QID PRN (Reason: Shortness Of Breath) dextroamphetamine-amphetamine [Adderall XR] 30 mg capsule,extended release 24hr 30 mg PO BID duloxetine 30 mg capsule,delayed release(DR/EC) 30 mg PO DAILY duloxetine 60 mg capsule,delayed release(DR/EC) 60 mg PO DAILY folic acid 1 mg Tablet 1 mg PO DAILY Discharge Orders: Left Against Medical Advice (Routine); Ordered 08/15/24 Ordered By: Isaiah Marroquin/Other Patient Handouts: Hypokalemia Dc Admission Data Admit Date/Time: 08/15/24 13:11 Attending Provider: Rachna Staley Admit Provider: Rachna Staley Primary Care Provider: Charanjit Ortiz Other Providers: Chaim Diaz
== END 2024-08-15 19:45 | disposition left against medical advice (07) | DRG 872 ==
LOC: ED 11:02 → INTOOBSV 13:11 → 2S 13:11